=== PATIENT | female | born 1935 | race Caucasian/White ===

== ENCOUNTER 2018-05-02 21:25 | Inpatient (IN) ==
--- NOTE | 2018-05-02 22:02 | Emergency Department Note ---
Disposition Clinical Impression: Confusion, Vomiting Disposition: Still a Patient General Adult HPI - General Stated complaint: Vomiting, General weakness Time Seen by Provider: 05/02/18 21:36 Source: patient, family Mode of arrival: EMS Limitations: no limitations Nursing Notes Reviewed: Yes Vital Signs Reviewed: Yes - History of Present Illness HPI Narrative: Patient is an 83-year-old female with past medical history including hypertension, myocardial infarction, COPD, hyperlipidemia, who presents with a chief complaint of vomiting and generalized weakness. Patient came from home via EMS and accompanied by family. Per family, the patient has had 2 falls in the past week. Last fall was 4 days ago. At that time she hit the right side of her chest and breast and complains of rib pain. She denies hitting her head and did not want to be seen by the doctor. She has been recently treated for pneumonia on oral antibiotics. She has one more pill left. Family is unsure of what the antibiotic is called. They state this morning the patient woke up and had a decreased appetite. She is feeling generally weak. She has had multiple episodes of nausea and vomiting that is nonbloody, nonbilious. They deny fevers at home. Around 1800 this evening, the patient woke up from a nap and was confused. Family states that she was unable to say the name of the children. Patient continued to vomit and continued to be confused so the family called EMS who brought the patient to the ED for further evaluation. - Related Data Previous Rx's Medication Instructions Recorded HYDROcodone/Acet 5/325 mg [[place] 1 tab PO Q6H PRN 3 Days #12 tab 12/16/17 5-325 mg] Allergies Allergy/AdvReac Type Severity Reaction Status Date / Time Penicillins Allergy Anaphylaxis Verified 05/02/18 22:29 All systems ED: reviewed and negative except as stated. Review of Systems: As Per HPI Constitutional: Denies: fever, chills Eyes: Denies: eye pain, vision change ENT ED: Denies: ear pain, throat pain Cardiovascular: Denies: chest pain, palpitations Respiratory: Reports: cough. Denies: dyspnea, wheezes Gastrointestinal: Reports: nausea, vomiting. Denies: abdominal pain, diarrhea Genitourinary: Denies: dysuria, frequency Integumentary: Denies: rash, abrasion Neurological: Reports: weakness, confusion. Denies: headache Hematological/Lymphatic: Denies: easy bleeding, easy bruising Past Medical History - Past Medical History Attestation: Yes The following information was validated with the patient. Source: obtained from family, nursing notes reviewed Medical history: Reports: COPD, hyperlipidemia, hypertension, myocardial infarction Surgical history: Reports: cholecystectomy, hysterectomy Psychiatric history: Reports: no psych history ROD BUSTER history: Reports: no ROD BUSTER history - Social History Smoking Status: Never smoker Smokeless Tobacco Status: No Alcohol use: Reports: none Drug use: Reports: none Physical Exam - General Limitations: no limitations General appearance: alert, other (Actively vomiting) - Head Head exam: atraumatic, normocephalic - Eye Eye exam: Present: normal appearance, PERRL, EOMI - ENT ENT exam: normal exam, normal oropharynx, mucous membranes dry - Neck Neck exam: Present: normal inspection, full ROM, trachea midline - Chest Chest inspection: Present: normal inspection, symmetric chest wall rise, other (Mild right rib tenderness) - Respiratory Respiratory exam: Present: other (Diminished breath sounds bilateral bases. No wheezing or crackles) - Cardiovascular Cardiovascular exam: Present: regular rate, normal rhythm, normal heart sounds - Abdominal Exam Abdominal exam: Present: other (Mild generalized tenderness. Diffuse distention). Absent: guarding, rebound, rigidity - Extremities Exam Extremities exam: Present: full ROM, pedal edema (Bilateral) - Neurological Exam Neurological exam: Present: alert - Expanded Neurological Exam Patient oriented to: Present: person, place Speech: Present: fluid speech Cranial nerves: EOM function (II, III, IV, ): Normal, facial sensation (V): Normal, facial palsy (VII): Normal, spinal accessory function (XI): Normal, tongue deviation (XII): Normal Motor strength - LUE: 4/5 Motor strength - RUE: 4/5 Motor strength - LLE: 4/5 Motor strength - RLE: 4/5 Upper motor neuron exam: tucker neglect: Absent bilaterally, pronator drift: Absent bilaterally Sensory exam upper extremity: light touch: Normal Sensory exam lower extremity: light touch: Normal - Psychiatric Psychiatric exam: Present: normal affect, normal mood - Skin Skin exam: Present: warm, dry, normal color Course Vital Signs Pulse Rate 85 05/02/18 21:33 Respiratory Rate 18 05/02/18 21:33 Blood Pressure 149/113 05/02/18 21:33 O2 Sat by Pulse Oximetry 97 05/02/18 21:33 Temperature 98.4 F 05/02/18 22:52 Pulse Rate 85 05/02/18 22:52 Respiratory Rate 18 05/02/18 22:52 Blood Pressure 149/113 05/02/18 22:52 O2 Sat by Pulse Oximetry 97 05/02/18 22:52 Oxygen Delivery Oxygen Delivery Nasal Cannula Medical Decision Making - MDM Narrative Medical decision making narrative: The patient appears weak and is mildly confused. She is oriented to self and place. She is unable to state why she is in the hospital. She does follow commands. She is also actively vomiting. We will check for sources of infection. Check CBC, electrolytes, urinalysis. We will also check chest x-ray given the patient's recent fall. We will also check CT head secondary to the patient's recent fall and confusion. Secondary to vomiting and generalized weakness we will also get a troponin and EKG. Patient's abdomen is also distended on examination she is actively vomiting so we will obtain CT of her abdomen to rule out an obstruction. She has had multiple abdominal surgeries in the past. 2300 Imaging results reviewed. Patient's chest x-ray does not show acute fracture or pneumonia. Her CT head does not show acute intracranial abnormality. Her CT abdomen does show air-fluid levels suggestive of diarrheal illness. Her colon is nondistended. Lab work is still pending at this time. The patient will likely require admission. Patient was signed out tonight team. SBAR signout. Pending lab work and further management based on lab results. - Lab Data Result diagrams: 05/02/18 22:50 - EKG Data EKG #1 EKG attestation: Yes I reviewed and interpreted this EKG. EKG results narrative: EKG from today at 2147 shows sinus rhythm with heart rate 71. NC interval 156. QT 482. QTC 524. There is multiple premature complexes noted. There is inverted T waves in V1 which is improved EKG on 03/19/2017. There is also inverted T waves in V2 and V3 which appear to be flat and the prior EKG. Otherwise no acute changes. No ST elevation or depression. Attestation Statement - Attestation Attestation: Resident Attestation: I examined this patient and my medical decision making was reviewed with the Resident Physician. I agree with the documented findings, disposition and treatment plan as described except to the extent set forth below. We independently had [id number] contact with the patient. Patient with a history of COPD, coronary artery disease, diet-controlled diabetes present for evaluation of confusion as well as multiple episodes of vomiting. Patient has had 2 falls in the last week most recent one occurring 4 days ago. Patient has recently been treated with antibiotics and has one day left. The patient had weakness earlier in the day that was nonspecific. It 2 PM she had confusion in knowing some of the people around her. The patient has since then had multiple episodes of vomiting. On my exam patient is had multiple episodes of vomiting. She has her name but not place or time. On exam she is able to hold both her arms and her legs off the bed without them falling to the bed. There is no obvious facial droop or other neurologic deficit. Workup initiated for both abdominal distention given her history of previous cholecystectomy, appendectomy, hysterectomy. Chest x-ray from the prior pneumonia and head CT for the fall. Blood work and urinalysis is otherwise been ordered and is pending. Abdomen soft nontender to palpation, associated distention without guarding or rebound. Lungs clear to auscultation bilaterally, regular rate and rhythm. Neuro symptoms as listed in history of present illness -No specific deficits. Patient signed out to Dr. Powell.
[2018-05-02 23:08] LABS: Basophils # 0.1 K/mcL (0.0-0.2); Basophils % 0.3 %; Hematocrit 34.7 % (35.3-44.9); Hemoglobin 12.5 g/dL (11.5-15.4); Immature Granulocytes % 1.9 % (0-4); Lymphocytes # 1.6 K/mcL (0.6-4.6); Lymphocytes % 9.1 %; Mean Corpuscular Hemoglobin 30.9 pg (28.0-33.3); Mean Corpuscular Volume 85.9 fL (83.0-100.0); Mean Platelet Volume 8.8 fL (9.4-12.4); Monocytes # 1.3 K/mcL (0.0-1.3); Monocytes % 7.8 %; Platelet Count 238 K/mcL (140-400); Red Blood Count 4.04 M/mcL (3.82-4.97); Red Cell Distribution Width 14.4 % (11.5-14.5); Segmented Neutrophils % 80.9 %
[2018-05-02 23:31] LABS: Alanine Aminotransferase 5 Units/L (7-52); Albumin 3.4 g/dL (3.5-5.7); Albumin/Globulin Ratio 1.3 (1.1-2.2); Alkaline Phosphatase 57 Units/L (34-104); Aspartate Amino Transferase 14 Units/L (13-39); BUN/Creatinine Ratio 12 (6-26); Bilirubin,Total 1.3 mg/dL (0.3-1.0); Blood Urea Nitrogen 8 mg/dL (8-23); Calcium 8.6 mg/dL (8.6-10.3); Carbon Dioxide 28 mEq/L (23-29); Chloride 76 mEq/L (98-107); Globulin 2.7 g/dL (2.4-3.5); Glucose 187 mg/dL (70-105); Lipase 8 Units/L (11-82); Osmolality,Calculated 243 (280-300); Potassium 2.6 mEq/L (3.5-5.1); Sodium 115 mEq/L (136-145); Total Protein 6.1 g/dL (6.4-8.9); eGFR For Non-African Americans > 60 (> 60)
[2018-05-02] MEDS ORDERED: 0.9 % Sodium Chloride 1,000 ML IVC ONE (23:47)
[2018-05-03] MEDS ORDERED: 0.9 % Sodium Chloride 500 ML IVC ONE ×2 (00:20→07:30)
--- NOTE | 2018-05-03 00:33 | Emergency Department Note ---
Disposition Clinical Impression: Confusion, Hyponatremia, Hypokalemia, Hypomagnesemia Vomiting Qualifiers: Vomiting type: unspecified Vomiting Intractability: unspecified Nausea presence: with nausea Qualified Code(s): R11.2 - Nausea with vomiting, unspecified Disposition: Admitted As Inpatient Condition: Critical Time of Disposition: 00:47 General Adult HPI - General Chief complaint: ED Nausea/Vomiting/Diarrhea Stated complaint: Vomiting, General weakness Time Seen by Provider: 05/02/18 21:36 Source: patient, family Mode of arrival: EMS Limitations: no limitations - History of Present Illness HPI Narrative: This patient was signed out to me by Dr. Le and Dr. Hoff. For full history and physical please refer to their note Pain Scale: 0 - Related Data Previous Rx's Medication Instructions Recorded HYDROcodone/Acet 5/325 mg [[place] 1 tab PO Q6H PRN 3 Days #12 tab 12/16/17 5-325 mg] Allergies Allergy/AdvReac Type Severity Reaction Status Date / Time Penicillins Allergy Anaphylaxis Verified 05/02/18 22:29 Constitutional: Denies: fever, chills Eyes: Denies: eye pain, vision change ENT ED: Denies: ear pain, throat pain Cardiovascular: Denies: chest pain, palpitations Respiratory: Reports: cough. Denies: dyspnea, wheezes Gastrointestinal: Reports: nausea, vomiting. Denies: abdominal pain, diarrhea Genitourinary: Denies: dysuria, frequency Integumentary: Denies: rash, abrasion Neurological: Reports: weakness, confusion. 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 Miller at 12:30. He recommended 500 mL bolus of normal saline then rechecking sodium after that if mental status improves and sodium is increasing then to continue with treatment not to raise the sodium too fast. If patient's mental status decreases or sodium goes down after the fluid bolus he then recommends changing to hypertonic saline. Time: 00:30 Vital Signs Temperature 97.8 F 05/02/18 21:33 Pulse Rate 85 05/02/18 21:33 Respiratory Rate 18 05/02/18 21:33 Blood Pressure 149/113 05/02/18 21:33 O2 Sat by Pulse Oximetry 97 05/02/18 21:33 Temperature 98.4 F 05/02/18 22:52 Pulse Rate 67 05/03/18 00:58 Respiratory Rate 18 05/03/18 00:58 Blood Pressure 149/113 05/02/18 22:52 O2 Sat by Pulse Oximetry 100 05/03/18 00:58 Oxygen Delivery Oxygen Delivery Nasal Cannula Medical Decision Making - MDM Narrative Medical decision making narrative: This patient was signed out to me pending laboratory values. CTs and chest x- rays came back with no acute abnormalities. Patient was shown to be hyponatremic at 1:15 as well as hypokalemic at 2.1 as well as hypomagnesemia at 1.0. Potassium and magnesium were replaced. Due to patient's acute mental changes after speaking with family they say yesterday she is normally able to have a conversationwho she has where she is at the day of the week although today she only knows her name otherwise is confused. They say she is not acting normal. Due to this acute change I was unsure on whether or not patient needed be started on hypertonic saline. I spoke with the hospitalist Dr. El who recommended speaking with nephrology. I spoke with the phone engineer Dr. Miller he said that he would recommend first giving a 500 mL bolus of normal saline then rechecking a sodium and if trending up or mental status improving then to continue that being sure not to raise the sodium too fast to cause CPM. If patient's mental status worsens or she has a lower sodium then he does recommend getting hypertonic saline. This is going to be done in the emergency department and patient will be transferred to the ICU for further evaluation. Patient is stable at this time. Chest X-Ray 05/02/18 21:50 IMPRESSION: 1. Elevation of the left hemidiaphragm with volume loss in the left lung base, slightly increased. 2. Otherwise no acute cardiopulmonary disease. D/ / 05/02/2018 22:35:25 Isaac Plunkett MD / oneal Interpreting Provider: Isaac Plunkett MD Abdomen/Pelvis CT 05/02/18 21:51 IMPRESSION: Air-fluid levels within the nondistended colon consistent with diarrheal disease. No other acute finding in the abdomen or pelvis. Stable 3.1 cm low-attenuation mass in the right adrenal gland consistent with a benign adrenal adenoma. The gallbladder, appendix and uterus are surgically absent. Small fat containing umbilical and left inguinal hernias. D/ / Luis Alberto Shannon MD / Luis Alberto Shannon MD Interpreting Provider: Luis Alberto Shannon MD Head CT 05/02/18 21:51 IMPRESSION: No acute intracranial abnormality. D/ / Luis Alberto Shannon MD / Luis Alberto Shannon MD Interpreting Provider: Luis Alberto Shannon MD - Medical Records Medical records reviewed: Yes I reviewed the patient's medical records. - Lab Data Lab results reviewed: Yes I reviewed the patient's lab results. Result diagrams: 05/02/18 22:50 05/03/18 01:08 Lab Results 05/02/18 05/02/18 05/02/18 Range/Units 22:50 22:50 22:50 WBC 17.3 H (4.3-11.1) K/mcL RBC 4.04 (3.82-4.97) M/mcL Hgb 12.5 (11.5-15.4) g/dL Hct 34.7 L (35.3-44.9) % MCV 85.9 (83.0-100.0) fL MCH 30.9 (28.0-33.3) pg MCHC 36.0 H (31.6-35.5) g/dL RDW 14.4 (11.5-14.5) % Plt Count 238 (140-400) K/mcL MPV 8.8 L (9.4-12.4) fL Immature Gran % 1.9 (0-4) % Seg Neutrophils % 80.9 % Lymphocytes % 9.1 % Monocytes % 7.8 % Eosinophils % 0.0 % Basophils % 0.3 % Neutrophils # 14.0 H (1.6-8.9) K/mcL Lymphocytes # 1.6 (0.6-4.6) K/mcL Monocytes # 1.3 (0.0-1.3) K/mcL Eosinophils # 0.0 (0.0-0.6) K/mcL Basophils # 0.1 (0.0-0.2) K/mcL Sodium 115 L* (136-145) mEq/L Potassium 2.6 L (3.5-5.1) mEq/L Chloride 76 L (98-107) mEq/L Carbon Dioxide 28 (23-29) mEq/L BUN 8 (8-23) mg/dL Creatinine 0.69 (0.60-1.20) mg/dL Est GFR ( Amer) > 60 (> 60) Est GFR (Non-Af Amer) > 60 (> 60) BUN/Creatinine Ratio 12 (6-26) Glucose 187 H (70-105) mg/dL Calculated Osmolality 243 L (280-300) Calcium 8.6 (8.6-10.3) mg/dL Magnesium 1.0 L (1.6-2.6) mg/dL Total Bilirubin 1.3 H (0.3-1.0) mg/dL AST 14 (13-39) Units/L ALT 5 L (7-52) Units/L Alkaline Phosphatase 57 (34-104) Units/L Troponin I 0.04 H* (< 0.04) ng/mL Serum Total Protein 6.1 L (6.4-8.9) g/dL Albumin 3.4 L (3.5-5.7) g/dL Globulin 2.7 (2.4-3.5) g/dL Albumin/Globulin Ratio 1.3 (1.1-2.2) Lipase 8 L (11-82) Units/L TSH 1.856 (0.340-5.600) mcIU/mL 05/03/18 Range/Units 01:08 WBC (4.3-11.1) K/mcL RBC (3.82-4.97) M/mcL Hgb (11.5-15.4) g/dL Hct (35.3-44.9) % MCV (83.0-100.0) fL MCH (28.0-33.3) pg MCHC (31.6-35.5) g/dL RDW (11.5-14.5) % Plt Count (140-400) K/mcL MPV (9.4-12.4) fL Immature Gran % (0-4) % Seg Neutrophils % % Lymphocytes % % Monocytes % % Eosinophils % % Basophils % % Neutrophils # (1.6-8.9) K/mcL Lymphocytes # (0.6-4.6) K/mcL Monocytes # (0.0-1.3) K/mcL Eosinophils # (0.0-0.6) K/mcL Basophils # (0.0-0.2) K/mcL Sodium 115 L* (136-145) mEq/L Potassium 2.5 L* (3.5-5.1) mEq/L Chloride 77 L (98-107) mEq/L Carbon Dioxide 29 (23-29) mEq/L BUN 7 L (8-23) mg/dL Creatinine 0.69 (0.60-1.20) mg/dL Est GFR ( Amer) > 60 (> 60) Est GFR (Non-Af Amer) > 60 (> 60) BUN/Creatinine Ratio 10 (6-26) Glucose 154 H (70-105) mg/dL Calculated Osmolality 241 L (280-300) Calcium 8.5 L (8.6-10.3) mg/dL Magnesium (1.6-2.6) mg/dL Total Bilirubin (0.3-1.0) mg/dL AST (13-39) Units/L ALT (7-52) Units/L Alkaline Phosphatase (34-104) Units/L Troponin I (< 0.04) ng/mL Serum Total Protein (6.4-8.9) g/dL Albumin (3.5-5.7) g/dL Globulin (2.4-3.5) g/dL Albumin/Globulin Ratio (1.1-2.2) Lipase (11-82) Units/L TSH (0.340-5.600) mcIU/mL - Radiology Data Radiology results reviewed: Yes I reviewed the patient's radiology results.
[2018-05-03 00:43] LABS: Thyroid Stimulating Hormone 1.856 mcIU/mL (0.340-5.600)
[2018-05-03 01:49] LABS: BUN/Creatinine Ratio 10 (6-26); Blood Urea Nitrogen 7 mg/dL (8-23); Calcium 8.5 mg/dL (8.6-10.3); Carbon Dioxide 29 mEq/L (23-29); Chloride 77 mEq/L (98-107); Glucose 154 mg/dL (70-105); Osmolality,Calculated 241 (280-300); Potassium 2.5 mEq/L (3.5-5.1); Sodium 115 mEq/L (136-145); eGFR For Non-African Americans > 60 (> 60)
[2018-05-03] MEDS ORDERED: Naloxone 0.4 MG/ML INJ IVP PRN (02:03)
[2018-05-03] MEDS ORDERED: *HR* HYDROcodone/Acet 5/325 mg TABLET PO PRN (02:03)
[2018-05-03] MEDS ORDERED: Ondansetron 4 MG/2 ML VIAL IVP PRN (02:08)
--- NOTE | 2018-05-03 02:08 | Internal Med History&Physical ---
<Winter Escobar - Last Filed: 05/03/18 02:32> Date of Encounter: 05/03/18 Time of Encounter: 02:08 Internal Medicine - H&P: HPI Admitted From: Emergency Dept History of present illness: Ms. Simon is a 83 year old female with significant past medical history of hypertension, coronary artery disease, COPD not on any oxygen at home admitted for hyponatremia, hypokalemia and hypomagnesemia. Patient was brought to the emergency department today due to confusion, nausea and vomiting. According to family members at bedside she had not been feeling well today. She was her normal self yesterday. Daughter at bedside takes care of her in her home and s tates approximately 4 days ago she had a fall landing on the right side of her chest. No swelling, bruising her pain was there after the fall so she was not brought into the emergency department for evaluation. Last evening patient had 2 episodes of nonbloody diarrhea. Daughter states she always has loose stools. Today when the patient woke up she was very weak and did not want to eat. She laid down to take a nap, woke up and was extremely confused. Did not know where she was and did not know any of her children's name. Daughter at bedside states that patient thought she was her mother. When patient arrived to the emergency department laboratory analysis CT of the head, abdomen and pelvis were completed. Labs showed a sodium level of 115, magnesium level of 1 and a potassium level of 2.6. Patient also had leukocytosis at [address] of the abdomen and pelvis showed air-fluid levels consistent with diarrhea but no bowel obstruction. Patient did have multiple episodes of nonbloody nonbilious vomiting in the emergency department but this is now resolved. When I examine the patient she was unable to provide me with her name, where she was or what year it was. This was a change from the patient's initial evaluation. Due to patient's hyponatremia nephrology was consulted. They recommended a 500 mL bolus and repeat BMP. Patient's sodium remained 115 a nd her mental status declined. Due to declining mental status and stable hyponatremia decision to add 3% was completed with nephrology's consultation. I spoke at length with the family about plan of treatment and they agree. Daughters aware of patient's critical status. Past Med Surg Social Fam HX - Past Medical History Source: old records reviewed Medical history: COPD, hyperlipidemia, hypertension, myocardial infarction Psychiatric history: no psych history - Past Surgical History Surgical History: cholecystectomy, hysterectomy - Social History Smoking Status: Never smoker Smokeless Tobacco Status: No Alcohol use: none Drug use: none Internal Medicine - H&P: Meds HYDROcodone/Acet 5/325 mg [[place] 5-325 mg] 1 tab PO Q6H PRN 3 Days #12 tab 12/16/17 [Rx] Allergy/AdvReac Type Severity Reaction Status Date / Time Penicillins Allergy Anaphylaxis Verified 05/02/18 22:29 ROS unobtainable: due to mental status All Systems PM: A 10-system review of systems was performed and is negative for pertinent findings except as documented above in the HPI. - Constitutional Vitals: Temp Pulse Resp BP Pulse Ox 98.4 F 67 18 149/113 100 05/02/18 22:52 05/03/18 00:58 05/03/18 00:58 05/02/18 22:52 05/03/18 00:58 General appearance: Present: A&O X 0 Exam: Patient awakes to painful stimuli. Unable to provide any history of present illness. Nontoxic appearing. Hemodynamically stable. - Head Head exam: Present: atraumatic, normal inspection, normocephalic - Eye Eye exam: Present: PERRL. Absent: scleral icterus - ENT ENT exam: Present: mucous membranes dry - Respiratory Respiratory exam: Present: CTAB. Absent: rales, respiratory distress, stridor, wheezes - Cardiovascular Cardiovascular exam: Present: RRR. Absent: bradycardia, irregular rhythm, tachycardia - GI/Abdominal GI/Abdominal exam: Present: soft. Absent: distended, firm, rebound, rigid, tenderness - Extremities Exam Extremities exam: Present: warm - Skin Skin exam: Present: warm. Absent: petechiae, rash Internal Med - H&P Results - Labs CBC & Chem 7: 05/02/18 22:50 05/03/18 01:08 Labs: Short CBC 05/02/18 Range/Units 22:50 WBC 17.3 H (4.3-11.1) K/mcL Hgb 12.5 (11.5-15.4) g/dL Hct 34.7 L (35.3-44.9) % Plt Count 238 (140-400) K/mcL Neutrophils # 14.0 H (1.6-8.9) K/mcL BMP 05/02/18 05/03/18 22:50 01:08 Sodium 115 L* 115 L* Potassium 2.6 L 2.5 L* Chloride 76 L 77 L Carbon Dioxide 28 29 BUN 8 7 L Creatinine 0.69 0.69 Glucose 187 H 154 H Calcium 8.6 8.5 L Cardiac Enzymes 05/02/18 Range/Units 22:50 Troponin I 0.04 H* (< 0.04) ng/mL Liver Function 05/02/18 Range/Units 22:50 Total Bilirubin 1.3 H (0.3-1.0) mg/dL AST 14 (13-39) Units/L ALT 5 L (7-52) Units/L Alkaline Phosphatase 57 (34-104) Units/L Albumin 3.4 L (3.5-5.7) g/dL - Impressions ITS Impressions Chest X-Ray 05/02/18 21:50 IMPRESSION: 1. Elevation of the left hemidiaphragm with volume loss in the left lung base, slightly increased. 2. Otherwise no acute cardiopulmonary disease. D/ / 05/02/2018 22:35:25 Isaac Plunkett MD / [facility] Interpreting Provider: Isaac Plunkett MD Abdomen/Pelvis CT 05/02/18 21:51 IMPRESSION: Air-fluid levels within the nondistended colon consistent with diarrheal disease. No other acute finding in the abdomen or pelvis. Stable 3.1 cm low-attenuation mass in the right adrenal gland consistent with a benign adrenal adenoma. The gallbladder, appendix and uterus are surgically absent. Small fat containing umbilical and left inguinal hernias. D/ / Luis Alberto Shannon MD / Luis Alberto Shannon MD Interpreting Provider: Luis Alberto Shannon MD Head CT 05/02/18 21:51 IMPRESSION: No acute intracranial abnormality. D/ / Luis Alberto Shannon MD / Luis Alberto Shannon MD Interpreting Provider: Luis Alberto Shannon MD - Assessment and plan (1) Hyponatremia Current Visit: Yes Status: Acute Assessment and plan: Patient's sodium 115. Fluid bolus given and remained unchanged. Patient's mental status worsening. Dr. Miller from nephrology was consult. He recommends starting 3% at 25 mL per hour. We will repeat sodium levels every 2 hours with frequent neurological checks. (2) Confusion Current Visit: Yes Status: Acute Assessment and plan: Patient's confusion most likely from hyponatremia. We will continue to perform frequent neurological checks. (3) Hypokalemia Current Visit: Yes Status: Acute Assessment and plan: Patient's potassium 2.6. We will be repleted with 40 mEq IV. (4) Hypomagnesemia Current Visit: Yes Status: Acute Assessment and plan: Patient hypomagnesemic at 1. Patient will be repleted with 2 g in the emergency department and repeat mag will be completed at 6am (5) Vomiting Current Visit: Yes Status: Acute Assessment and plan: Patient had multiple episodes of nonbloody nonbilious vomiting in the emergency department. Now resolved. We will order Zofran as needed. Qualifiers: Vomiting type: unspecified Vomiting Intractability: unspecified Nausea presence: with nausea Qualified Code(s): R11.2 - Nausea with vomiting, unspecified (6) DVT prophylaxis Current Visit: Yes Status: Acute Assessment and plan: subcutaneous heparin - Time Spent With Patient Total time spent is greater than 50% in coordination of care (as documented) at patient's floor/unit and/or counseling patient: <Nicolas Goodelda Dominguez - Last Filed: 05/03/18 08:50> Date of Encounter: 05/03/18 Internal Medicine - H&P: HPI History of present illness: Ms. Simon is a 83 year old female All Systems PM: A 10-system review of systems was performed and is negative for pertinent findings except as documented above in the HPI. - Constitutional Vitals: Temp Pulse Resp BP Pulse Ox 98.0 F 67 17 93/53 99 05/03/18 07:00 05/03/18 08:00 05/03/18 08:00 05/03/18 08:00 05/03/18 08:00 Internal Med - H&P Results - Labs CBC & Chem 7: 05/03/18 06:10 05/03/18 06:10 Labs: Short CBC 05/02/18 05/03/18 Range/Units 22:50 06:10 WBC 17.3 H 14.3 H (4.3-11.1) K/mcL Hgb 12.5 10.7 L D (11.5-15.4) g/dL Hct 34.7 L 30.0 L (35.3-44.9) % Plt Count 238 202 (140-400) K/mcL Neutrophils # 14.0 H 10.7 H (1.6-8.9) K/mcL BMP 05/02/18 05/03/18 05/03/18 22:50 01:08 03:45 Sodium 115 L* 115 L* 117 L* Potassium 2.6 L 2.5 L* Chloride 76 L 77 L Carbon Dioxide 28 29 BUN 8 7 L Creatinine 0.69 0.69 Glucose 187 H 154 H Calcium 8.6 8.5 L 05/03/18 06:10 Sodium 118 L* Potassium 3.1 L Chloride 81 L Carbon Dioxide 30 H BUN 6 L Creatinine 0.62 Glucose 127 H Calcium 8.2 L Cardiac Enzymes 05/02/18 05/03/18 Range/Units 22:50 03:45 Troponin I 0.04 H* 0.04 H* (< 0.04) ng/mL Liver Function 05/02/18 Range/Units 22:50 Total Bilirubin 1.3 H (0.3-1.0) mg/dL AST 14 (13-39) Units/L ALT 5 L (7-52) Units/L Alkaline Phosphatase 57 (34-104) Units/L Albumin 3.4 L (3.5-5.7) g/dL Urine 05/03/18 Range/Units 02:11 Urine Color Dark Yellow (Yellow) Urine Clarity Cloudy A (Clear) Urine pH 6.0 (5.0-8.0) pH Units Ur Specific Atkins 1.016 (1.010-1.025) Urine Protein Negative (Neg-Trace) mg/dL Urine Glucose (UA) Normal (Normal) mg/dL - Impressions ITS Impressions Chest X-Ray 05/02/18 21:50 IMPRESSION: 1. Elevation of the left hemidiaphragm with volume loss in the left lung base, slightly increased. 2. Otherwise no acute cardiopulmonary disease. D/ / 05/02/2018 22:35:25 Isaac Plunkett MD / [facility] Interpreting Provider: Isaac Plunkett MD Abdomen/Pelvis CT 05/02/18 21:51 IMPRESSION: Air-fluid levels within the nondistended colon consistent with diarrheal disease. No other acute finding in the abdomen or pelvis. Stable 3.1 cm low-attenuation mass in the right adrenal gland consistent with a benign adrenal adenoma. The gallbladder, appendix and uterus are surgically absent. Small fat containing umbilical and left inguinal hernias. D/ / Luis Alberto Shannon MD / Luis Alberto Shannon MD Interpreting Provider: Luis Alberto Shannon MD Head CT 05/02/18 21:51 IMPRESSION: No acute intracranial abnormality. D/ / Luis Alberto Shannon MD / Luis Alberto Shannon MD Interpreting Provider: Luis Alberto Shannon MD Chest X-Ray 05/03/18 03:30 IMPRESSION: Interval placement of right-sided jugular venous catheter with its tip terminating overlying the expected location of the right atrium. No convincing evidence for pneumothorax. Persistent elevation of the left hemidiaphragm. D/ / Isac Fernandes MD / Isac Fernandes MD Interpreting Provider: Isac Fernandes MD - Time Spent With Patient Total time spent is greater than 50% in coordination of care (as documented) at patient's floor/unit and/or counseling patient: - Attending Attestation I performed a history and physical examination of the patient and discussed her management with the resident. I reviewed the resident's note and agree with her plan of care. In short patient is a 83-year-old female with a past medical history as noted above who presents with altered mental status. Found to be hyponatremic with a sodium of 115. Case was discussed with Dr. Miller with nephrology. Correction was initially attempted with a 500 mL bolus of normal saline. Patient did not respond and subsequently had a central line placed for administration of 3% normal saline. Sodium gradually improved. Nephrology to follow patient in the morning.
[2018-05-03 02:20] LABS: Bilirubin,Urine Negative (Negative); Blood,Urine Negative (Negative); Clarity,Urine Cloudy (Clear); Color,Urine Dark Yellow (Yellow); Glucose,Urine (UA) Normal (Normal); Ketones,Urine Negative (Negative); Leukocyte Esterase,Urine Small (Negative); Nitrite,Urine Negative (Negative); Protein,Urine Negative (Neg-Trace); Specific Gravity,Urine 1.016 (1.010-1.025); Urobilinogen,Urine Normal (Normal)
--- NOTE | 2018-05-03 02:22 | Emergency Department Note ---
Disposition Clinical Impression: Confusion, Hyponatremia, Hypokalemia, Hypomagnesemia Vomiting Qualifiers: Vomiting type: unspecified Vomiting Intractability: unspecified Nausea presence: with nausea Qualified Code(s): R11.2 - Nausea with vomiting, unspecified Disposition: Admitted As Inpatient Condition: Critical General Adult HPI - General Chief complaint: ED Nausea/Vomiting/Diarrhea Stated complaint: Vomiting, General weakness Time Seen by Provider: 05/02/18 21:36 Source: patient, family Mode of arrival: EMS Limitations: no limitations Nursing Notes Reviewed: Yes Vital Signs Reviewed: Yes - History of Present Illness Pain Scale: 0 - Related Data Previous Rx's Medication Instructions Recorded HYDROcodone/Acet 5/325 mg [[place] 1 tab PO Q6H PRN 3 Days #12 tab 12/16/17 5-325 mg] Allergies Allergy/AdvReac Type Severity Reaction Status Date / Time Penicillins Allergy Anaphylaxis Verified 05/02/18 22:29 Constitutional: Denies: fever, chills Eyes: Denies: eye pain, vision change ENT ED: Denies: ear pain, throat pain Cardiovascular: Denies: chest pain, palpitations Respiratory: Reports: cough. Denies: dyspnea, wheezes Gastrointestinal: Reports: nausea, vomiting. Denies: abdominal pain, diarrhea Genitourinary: Denies: dysuria, frequency Integumentary: Denies: rash, abrasion Neurological: Reports: weakness, confusion. Denies: headache Hematological/Lymphatic: Denies: easy bleeding, easy bruising Past Medical History - Past Medical History Medical history: Reports: COPD, hyperlipidemia, hypertension, myocardial infarction Surgical history: Reports: cholecystectomy, hysterectomy Psychiatric history: Reports: no psych history HUMAN SERVICES MANAGER history: Reports: no HUMAN SERVICES MANAGER history - Social History Smoking Status: Never smoker Smokeless Tobacco Status: No Alcohol use: Reports: none Drug use: Reports: none Physical Exam - General Limitations: no limitations General appearance: alert, other (Actively vomiting) Course Vital Signs Temperature 97.8 F 05/02/18 21:33 Pulse Rate 85 05/02/18 21:33 Respiratory Rate 18 05/02/18 21:33 Blood Pressure 149/113 05/02/18 21:33 O2 Sat by Pulse Oximetry 97 05/02/18 21:33 Temperature 98.4 F 05/02/18 22:52 Pulse Rate 67 05/03/18 00:58 Respiratory Rate 18 05/03/18 00:58 Blood Pressure 149/113 05/02/18 22:52 O2 Sat by Pulse Oximetry 100 05/03/18 00:58 Oxygen Delivery Oxygen Delivery Nasal Cannula Medical Decision Making - Medical Records Medical records reviewed: Yes I reviewed the patient's medical records. - Lab Data Lab results reviewed: Yes I reviewed the patient's lab results. Result diagrams: 05/02/18 22:50 05/03/18 01:08 Lab Results 05/02/18 05/02/18 05/02/18 Range/Units 22:50 22:50 22:50 WBC 17.3 H (4.3-11.1) K/mcL RBC 4.04 (3.82-4.97) M/mcL Hgb 12.5 (11.5-15.4) g/dL Hct 34.7 L (35.3-44.9) % MCV 85.9 (83.0-100.0) fL MCH 30.9 (28.0-33.3) pg MCHC 36.0 H (31.6-35.5) g/dL RDW 14.4 (11.5-14.5) % Plt Count 238 (140-400) K/mcL MPV 8.8 L (9.4-12.4) fL Immature Gran % 1.9 (0-4) % Seg Neutrophils % 80.9 % Lymphocytes % 9.1 % Monocytes % 7.8 % Eosinophils % 0.0 % Basophils % 0.3 % Neutrophils # 14.0 H (1.6-8.9) K/mcL Lymphocytes # 1.6 (0.6-4.6) K/mcL Monocytes # 1.3 (0.0-1.3) K/mcL Eosinophils # 0.0 (0.0-0.6) K/mcL Basophils # 0.1 (0.0-0.2) K/mcL Sodium 115 L* (136-145) mEq/L Potassium 2.6 L (3.5-5.1) mEq/L Chloride 76 L (98-107) mEq/L Carbon Dioxide 28 (23-29) mEq/L BUN 8 (8-23) mg/dL Creatinine 0.69 (0.60-1.20) mg/dL Est GFR ( Amer) > 60 (> 60) Est GFR (Non-Af Amer) > 60 (> 60) BUN/Creatinine Ratio 12 (6-26) Glucose 187 H (70-105) mg/dL Calculated Osmolality 243 L (280-300) Calcium 8.6 (8.6-10.3) mg/dL Magnesium 1.0 L (1.6-2.6) mg/dL Total Bilirubin 1.3 H (0.3-1.0) mg/dL AST 14 (13-39) Units/L ALT 5 L (7-52) Units/L Alkaline Phosphatase 57 (34-104) Units/L Troponin I 0.04 H* (< 0.04) ng/mL Serum Total Protein 6.1 L (6.4-8.9) g/dL Albumin 3.4 L (3.5-5.7) g/dL Globulin 2.7 (2.4-3.5) g/dL Albumin/Globulin Ratio 1.3 (1.1-2.2) Lipase 8 L (11-82) Units/L TSH 1.856 (0.340-5.600) mcIU/mL - Radiology Data Radiology results reviewed: Yes I reviewed the patient's radiology results. Chest X-Ray 05/02/18 21:50 IMPRESSION: 1. Elevation of the left hemidiaphragm with volume loss in the left lung base, slightly increased. 2. Otherwise no acute cardiopulmonary disease. D/ / 05/02/2018 22:35:25 Isaac Plunkett MD / [email or web address] Interpreting Provider: Isaac Plunkett MD Abdomen/Pelvis CT 05/02/18 21:51 IMPRESSION: Air-fluid levels within the nondistended colon consistent with diarrheal disease. No other acute finding in the abdomen or pelvis. Stable 3.1 cm low-attenuation mass in the right adrenal gland consistent with a benign adrenal adenoma. The gallbladder, appendix and uterus are surgically absent. Small fat containing umbilical and left inguinal hernias. D/ / Luis Alberto Shannon MD / Luis Alberto Shannon MD Interpreting Provider: Luis Alberto Shannon MD Head CT 05/02/18 21:51 IMPRESSION: No acute intracranial abnormality. D/ / Luis Alberto Shannon MD / Luis Alberto Shannon MD Interpreting Provider: Luis Alberto Shannon MD Critical Care Time Critical Care Time: Yes Total Critical Care Time: 45 Attestation: Critical care performed: Time is exclusive of separately billable procedures. Time includes: direct pat ient care, patient reassessment, coordination of patient care, interpretation of data (laboratory data, radiology data, and respiratory data), review of patient's medical records, medical consultation and documentation of patient care. Procedures included in critical care time: Procedures excluded from critical care time: Attestation Statement - Attestation Attestation: I, Josue Powell MD, personally evaluated this patient and discussed their management with the resident physician. I reviewed the resident's note and agree with the documented findings, medical decision making, and plan of care. This patient was signed out at shift change from Dr. Le and Dr. Hoff. Please refer to their notes for complete details of the history and physical examination. Patient is an 83-year-old female who presented by ambulance for increasing generalized weakness throughout the day associated with nausea and vomiting. Since about 6 PM after awakening from a nap the patient has been confused which has gotten progressively worse throughout the evening. On examination patient is a well-developed well-nourished elderly female in no acute distress. She is alert and answers some questions but is obviously confused. She is oriented to person only and does not recognize some of her family members. There is no cyanosis or diaphoresis. Breath sounds are equal bilaterally. Heart regular. Abdomen soft and nontender. No gross focal neurological deficits noted. Labs reviewed and patient and found to be markedly hyponatremic with a sodium of 115. No prior history. Also potassium of 2.6 and magnesium of 1.0. Dr. Miller discussed with the displayer merchandise environmental engineering manager, Dr. Miller, and he recommended initial treatment with normal saline and recheck sodium after a 500 mL bolus. He requested ICU admission. The hospitalist, Dr. El, was consulted and accepted admission of the patient.
[2018-05-03 02:35] LABS: Hyaline Casts,Urine Few per lpf (None-Few)
[2018-05-03 02:36] LABS: Bacteria,Urine Few per hpf (None-Few); Squamous Epithelial Cell,Urine Moderate per lpf (None-Few)
--- NOTE | 2018-05-03 04:26 | Procedure Note ---
Date of procedure: 05/03/18 Pre-op diagnosis: Hyponatremia Post-op diagnosis: same Procedure: The patient was placed in Trendelenburg position. RIGHT chest region was prepped using chlorhexidine scrub and draped in sterile fashion. The medial and lateral heads of the sternocleidomastoid muscle were identified as was the carotid pulse. The Internal Jugular vein was identified using the ultrasound. Anesthesia was achieved over the vein using 1% lidocaine. Using real-time out of plane guidance, the introducer needle was inserted into the Internal Jugular vein under direct ultrasound visualization. Venous blood was withdrawn. The syringe was removed and a guidewire was advanced into the introducer needle. The guidewire was visualized in the Internal Jugular Vein by ultrasound. A small incision was made at the skin surface with a scalpel and the introducer needle was exchanged for a dilator over the guidewire. After appropriate dilation was obtained, the dilator was exchanged over the wire for central venous catheter. The wire was removed and the catheter was sutured in place. The patient tolerated the procedure without any hemodynamic compromise. At time of procedure completion, all ports aspirated and flushed properly. Post-procedure chest x-ray is pending at this time. Estimated blood loss is 5cc Anesthesia: none Was there an business services assistant present: Yes Purler: Mahogany Good Estimated blood loss (cc): 5 Specimen: None Pathology: none sent Condition: stable Disposition: ICU
[2018-05-03] MEDS: *HR* Heparin 5,000 UNIT/ML VIAL SQ SCH ×2 (05:13→18:12)
[2018-05-03 06:55] LABS: Basophils % 0.2 %; Eosinophils % 0.3 %; Hemoglobin 10.7 g/dL (11.5-15.4); Immature Granulocytes % 1.2 % (0-4); Lymphocytes # 2.1 K/mcL (0.6-4.6); Lymphocytes % 14.9 %; Mean Corpuscular HGB Conc 35.7 g/dL (31.6-35.5); Mean Corpuscular Hemoglobin 31.1 pg (28.0-33.3); Mean Corpuscular Volume 87.2 fL (83.0-100.0); Mean Platelet Volume 9.2 fL (9.4-12.4); Monocytes # 1.3 K/mcL (0.0-1.3); Monocytes % 8.7 %; Neutrophils # 10.7 K/mcL (1.6-8.9); Platelet Count 202 K/mcL (140-400); Red Blood Count 3.44 M/mcL (3.82-4.97); Red Cell Distribution Width 14.4 % (11.5-14.5); Segmented Neutrophils % 74.7 %
[2018-05-03 07:17] LABS: BUN/Creatinine Ratio 10 (6-26); Blood Urea Nitrogen 6 mg/dL (8-23); Calcium 8.2 mg/dL (8.6-10.3); Carbon Dioxide 30 mEq/L (23-29); Chloride 81 mEq/L (98-107); Glucose 127 mg/dL (70-105); Magnesium 1.6 mg/dL (1.6-2.6); Osmolality,Calculated 245 (280-300); Potassium 3.1 mEq/L (3.5-5.1); Sodium 118 mEq/L (136-145); eGFR For Non-African Americans > 60 (> 60)
--- NOTE | 2018-05-03 08:34 | Pulmonology Consult Note ---
<Fani Mcclain - Last Filed: 05/03/18 21:15> Date of Encounter: 05/03/18 Time of Encounter: 09:12 Assessment and Plan (1) Hyponatremia Current Visit: Yes Status: Acute -Initial sodium on presentation 115 -Prior to this admission records shows most recent sodium (Mar 2017) was 134 -Etiology most likely multifactorial including dehydration secondary to GI losses and poor oral intake -Initial treatment in ED attempted with 500 mL bolus normal saline, sodium remained at 115--there was concern for decreasing mental status at that time and nephrology was consulted and 3% saline at low infusion rate was recommended -On recheck, sodium corrected from 118 to 128 over 4 hours -Rapid sodium correction being treated with N3H--the received 2 L total, sodium on recheck 125 -Mental status has improved since presentation Plan -Goal serum sodium [id number] -Give 1000 mL D5W followed by recheck of sodium -Recheck BMP, magnesium, and phos Q4H (2) Confusion Current Visit: Yes Status: Acute Etiology most likely related to hyponatremia Baseline mental status is unclear, but current mental status has improved since presentation to ED CT head negative for acute intracranial abnormality; showed mild generalized atrophy with mild chronic small vessel ischemic disease of white matter Continue careful hyponatremia correction as above and continue to monitor neurologic/mental status (3) Hypokalemia Current Visit: Yes Status: Acute Suspected etiology as above for hyponatremia, reported diarrhea prior to admission likely contributing as well Initial potassium 2.6, was repleted with 40 mEq IV potassium This morning potassium improved to 3.1 We will continue to monitor and replace as needed Continue monitoring cardiac rhythm on telemetry (4) Hypomagnesemia Current Visit: Yes Status: Acute Suspected etiology as above Initial magnesium of 1, repleted with 2 g IV magnesium Magnesium improved to 1.6 on recheck Continue to monitor and replace as needed (5) DVT prophylaxis Current Visit: Yes Status: Acute Subcutaneous heparin History of Present Illness Consult date: 05/03/18 Reason for consult: other (hyponatremia) History of present illness: Ms. Simon is an 83-year-old female with past medical history HTN, CAD, [place], and COPD not on home oxygen who presented to the ED with complaints of generalized weakness and multiple episodes of emesis since the morning of her day of admission. Later that evening patient awoke from nap and was confused, reportedly unable to say the name of her children; she continued to have emesis and confusion, prompting family to call EMS. Baseline mental status unclear; uncertain of patient's accuracy as historian and no family present at time of my interview with patient On presentation she was afebrile, hemodynamically stable, and saturating 95-100% on 2 L nasal cannula. CXR showed no acute cardiopulmonary disease or focal lung infiltrate. CT abdomen pelvis showed stable 3.1 cm mass of right adrenal gland consistent with benign adrenal adenoma; air-fluid levels within nondistended colon consistent with diarrheal disease. CT head negative for acute intracranial abnormalities. Initial CBC with differential showed WBC 17.3, Hgb/Hct 12.5/34.7, with neutrophils predominant and no bands. Additional lab work on presentation notable for sodium 115, potassium 2.6, chloride 76, glucose 187, calculated osmolality 243, magnesium 1, troponin 0.04, lipase 8, TSH 1.856. Initial attempt to correct hyponatremia with 500 mL bolus normal saline was unsuccessful and patient was transferred to the ICU for further evaluation and management. Central venous catheter placed in right IJ with correct placement confirmed by chest x-ray. Nephrology consulted regarding her hyponatremia and confusion, nephrology recommended starting 3% saline at 25 mL/hr with frequent neuro checks and sodium level rechecks Q2H. Hypokalemia repleted with 40 mEq IV. Hypomagnesemia repleted with 2 g in emergency department. Past Med Surg Social Fam HX - Past Medical History Medical history: COPD, hyperlipidemia, hypertension, myocardial infarction Psychiatric history: no psych history - Past Surgical History Surgical History: cholecystectomy, hysterectomy - Social History Smoking Status: Never smoker Smokeless Tobacco Status: No Alcohol use: none Drug use: none Medications and Allergies HYDROcodone/Acet 5/325 mg [[place] 5-325 mg] 1 tab PO Q6H PRN 3 Days #12 tab 12/16/17 [Rx] Allopurinol [Zyloprim 100 MG] 100 mg PO DAILY 05/03/18 [History] Ergocalciferol (VITAMIN D2) [Vitamin D2] 50,000 unit PO QWEEK 05/03/18 [History] Furosemide [Lasix] 80 mg PO DAILY 05/03/18 [History] Isosorbide MONOnitrate (24 HR) [Imdur] 30 mg PO DAILY 05/03/18 [History] Metoprolol Succinate [Toprol Xl] 50 mg PO DAILY 12/22/18 [History] Potassium Chloride [Klor-Con 10] 10 meq PO BID 05/03/18 [History] Sulfasalazine [Azulfidine] 1,000 mg PO DAILY 05/03/18 [History] Allergy/AdvReac Type Severity Reaction Status Date / Time Penicillins Allergy Anaphylaxis Verified 05/02/18 22:29 All Systems: The remainder of the systems were reviewed and are negative Review of Systems: Baseline mental status unclear; uncertain of patient's accuracy as historian and no family present at time of my interview with patient - Constitutional Constitutional: no chills, no fever(s) - Cardiovascular Cardiovascular: syncope, no chest pain, no dyspnea, no irregular heart rhythm, no palpitations - Respiratory Respiratory: no cough, no dyspnea, no wheezing - Gastrointestinal Gastrointestinal: nausea, vomiting, no abdominal pain, no diarrhea - Musculoskeletal Musculoskeletal: other (right arm pain) - Neurological Neurological: syncope, no confusion - Endocrine Endocrine: other (increased thirst) Physical Examination Vital Signs: Vital Signs, Last 4 Hours Temp Pulse Resp BP Pulse Ox 05/03/18 08:00 67 17 93/53 99 05/03/18 07:00 98.0 F 72 17 89/50 100 05/03/18 06:00 71 14 84/48 100 05/03/18 05:00 66 14 91/51 100 Results - Laboratory Findings CBC and BMP: 05/03/18 06:10 05/03/18 17:37 Abnormal lab findings: Abnormal lab results WBC 14.3 K/mcL (4.3-11.1) H 05/03/18 06:10 RBC 3.44 M/mcL (3.82-4.97) L 05/03/18 06:10 Hgb 10.7 g/dL (11.5-15.4) L D 05/03/18 06:10 Hct 30.0 % (35.3-44.9) L 05/03/18 06:10 MCHC 35.7 g/dL (31.6-35.5) H 05/03/18 06:10 MPV 9.2 fL (9.4-12.4) L 05/03/18 06:10 Neutrophils # 10.7 K/mcL (1.6-8.9) H 05/03/18 06:10 Sodium 118 mEq/L (136-145) L* 05/03/18 06:10 Potassium 3.1 mEq/L (3.5-5.1) L 05/03/18 06:10 Chloride 81 mEq/L (98-107) L 05/03/18 06:10 Carbon Dioxide 30 mEq/L (23-29) H 05/03/18 06:10 BUN 6 mg/dL (8-23) L 05/03/18 06:10 Glucose 127 mg/dL (70-105) H 05/03/18 06:10 POC Glucose 128 mg/dL (70-99) H 05/03/18 03:04 Calculated Osmolality 245 (280-300) L 05/03/18 06:10 Calcium 8.2 mg/dL (8.6-10.3) L 05/03/18 06:10 Total Bilirubin 1.3 mg/dL (0.3-1.0) H 05/02/18 22:50 ALT 5 Units/L (7-52) L 05/02/18 22:50 Troponin I 0.04 ng/mL (< 0.04) H* 05/03/18 03:45 Serum Total Protein 6.1 g/dL (6.4-8.9) L 05/02/18 22:50 Albumin 3.4 g/dL (3.5-5.7) L 05/02/18 22:50 Lipase 8 Units/L (11-82) L 05/02/18 22:50 Urine Clarity Cloudy (Clear) A 05/03/18 02:11 Ur Leukocyte Esterase Small (Negative) H 05/03/18 02:11 Urine Microscopic WBC 5-15 per hpf (0-3) H 05/03/18 02:11 Ur Squamous Epith Cells Moderate per lpf (None-Few) H 05/03/18 02:11 Ur Culture Indicated? YES (NO) A 05/03/18 02:11 - Clinical Findings Intake & Output: Intake & Output 05/02/18 05/03/18 05/03/18 23:59 07:59 15:59 Intake Total 404 / 404 Output Total 875 / 875 Balance -471 / -471 Weight 82.554 kg 80.4 kg Consult Discharge Plan - Plan Referrals: Marco Jaffe Jr, MD [Primary Care Provider] - <NattyjosemanuelAlis S - Last Filed: 05/03/18 22:42> Date of Encounter: 05/03/18 All Systems: The remainder of the systems were reviewed and are negative Physical Examination Vital Signs: Vital Signs, Last 4 Hours Temp Pulse Resp BP Pulse Ox 05/03/18 22:00 78 16 108/62 99 05/03/18 21:00 72 18 82/54 99 05/03/18 20:00 77 20 91/58 100 05/03/18 19:48 97.5 F L 05/03/18 19:00 77 18 90/46 96 Results - Laboratory Findings CBC and BMP: 05/03/18 06:10 05/03/18 17:37 Abnormal lab findings: Abnormal lab results WBC 14.3 K/mcL (4.3-11.1) H 05/03/18 06:10 RBC 3.44 M/mcL (3.82-4.97) L 05/03/18 06:10 Hgb 10.7 g/dL (11.5-15.4) L D 05/03/18 06:10 Hct 30.0 % (35.3-44.9) L 05/03/18 06:10 MCHC 35.7 g/dL (31.6-35.5) H 05/03/18 06:10 MPV 9.2 fL (9.4-12.4) L 05/03/18 06:10 Neutrophils # 10.7 K/mcL (1.6-8.9) H 05/03/18 06:10 Sodium 125 mEq/L (136-145) L 05/03/18 17:37 Potassium 3.3 mEq/L (3.5-5.1) L 05/03/18 17:37 Chloride 88 mEq/L (98-107) L 05/03/18 17:37 Carbon Dioxide 33 mEq/L (23-29) H 05/03/18 17:37 BUN 5 mg/dL (8-23) L 05/03/18 17:37 POC Glucose 128 mg/dL (70-99) H 05/03/18 03:04 Serum Osmolality 270 mOsm/kg (280-300) L 05/03/18 15:16 Calculated Osmolality 257 (280-300) L 05/03/18 17:37 Calcium 8.0 mg/dL (8.6-10.3) L 05/03/18 17:37 Total Bilirubin 1.3 mg/dL (0.3-1.0) H 05/02/18 22:50 ALT 5 Units/L (7-52) L 05/02/18 22:50 Troponin I 0.04 ng/mL (< 0.04) H* 05/03/18 03:45 Serum Total Protein 6.1 g/dL (6.4-8.9) L 05/02/18 22:50 Albumin 3.4 g/dL (3.5-5.7) L 05/02/18 22:50 Lipase 8 Units/L (11-82) L 05/02/18 22:50 Urine Clarity Cloudy (Clear) A 05/03/18 02:11 Ur Leukocyte Esterase Small (Negative) H 05/03/18 02:11 Urine Microscopic WBC 5-15 per hpf (0-3) H 05/03/18 02:11 Ur Squamous Epith Cells Moderate per lpf (None-Few) H 05/03/18 02:11 Ur Culture Indicated? YES (NO) A 05/03/18 02:11 Urine Osmolality 68 mOsm/kg (300-1090) L 05/03/18 13:19 - Clinical Findings Intake & Output: Intake & Output 05/03/18 05/03/18 05/03/18 07:59 15:59 23:59 Intake Total 404 / 404 304 / 304 1000 / 1000 Output Total 875 / 875 4025 / 4025 200 / 200 Balance -471 / -471 -3721 / -3721 800 / 800 Weight 80.4 kg - Attending Attestation I saw and evaluated this patient and my medical decision-making was reviewed with the Resident Physician. I agree with the documented findings, disposition and treatment plan as described except to the extent set forth below. We independently had [id number] contact with the patient I spent of Critical Care time with this patient. It involved decision making of high complexity to assess, manipulate, and support vital organ system failure and/or to prevent further life threatening deterioration of the patient's condition. The time involved in the performance of separately reportable procedures was not counted toward critical care time. Patient seen and examined at bedside Labs, radiology, chart personally reviewed. Management was reviewed during multidisciplinary critical care rounds. CERTIFIED SURGICAL TECHNICIAN: Patient presented with altered mental status CT showed no acute abnormalities the altered mental status most likely secondary to hypovolemic hyponatremia Pulm: Patient has acceptable oxygenation and ventilation. Cards: Patient had borderline blood pressure most likely secondary to hypovolemia responded well to fluids urine output picked up FEN-GI: Advance diet as tolerated . Renal: Nephrology was consulted for hypernatremia most likely hypovolemia was started on 500 mL of 0.9% saline was no much change in sodium with altered mental status patient was started on 3% normal saline symptoms is more of h ypovolemic hyponatremia she was again started on 500 abdominal sodium and chloride 0.9% his sodium is 118 at that point patient out of character to 128 since this is a rapid correction 5% dextrose was given back to goal sodium between 120-122 if is not correcting too that level spoke with nephrology recommended DDAVP. To continue close monitoring for sodium every 4 hours. ID: No active infectious disease issues Heme/Onc: Labs reviewed Endo: Glucose Monitored Integ/MSK: Skin Care per routine ICU Nursing Protocol to prevent ulcers. Lines: All lines examined without evidence of infection : Dispo: Critically ill CODE: Full Code
[2018-05-03] MEDS ORDERED: 0.9 % Sodium Chloride 250 ML ONE (08:55)
[2018-05-03 11:17] LABS: BUN/Creatinine Ratio 10 (6-26); Blood Urea Nitrogen 6 mg/dL (8-23); Calcium 8.2 mg/dL (8.6-10.3); Carbon Dioxide 32 mEq/L (23-29); Chloride 88 mEq/L (98-107); Glucose 123 mg/dL (70-105); Magnesium 2.3 mg/dL (1.6-2.6); Osmolality,Calculated 265 (280-300); Phosphorous 2.6 mg/dL (2.7-4.5); Potassium 2.7 mEq/L (3.5-5.1); Sodium 128 mEq/L (136-145); eGFR For Non-African Americans > 60 (> 60)
[2018-05-03] MEDS ORDERED: D5% in Water 1,000 ML IVC ONE (11:45)
[2018-05-03] MEDS: Potassium Chloride 40 MEQ/200 ML BAG IVPB PRN (12:03)
[2018-05-03] MEDS: Acetaminophen 325 MG TABLET PO PRN (12:41)
--- NOTE | 2018-05-03 12:56 | Nephrology Consult Note ---
Date of Encounter: 05/03/18 Time of Encounter: 12:56 Assessment and Plan (1) Hyponatremia Current Visit: Yes Status: Acute Prior to hospitalization per our records her most recent sodium was March 2017 and was 134. She presents with multifactorial (dehydration, poor solute intake, nausea, vomiting) acute hyponatremia that could possibly be symptomatic. Her baseline mental status is unknown. Overnight did have a conversation with the admitting hospitalist. After initial treatment with normal saline with no change in the patient's serum sodium of 115 they were concerned that her mental status was decreasing so the patient was started on a very low rate of 3% saline with slight increase in her sodium level to 117 and level of alertness. The 3% saline was stopped after 4 hours and she was given normal saline as the covering team felt that she was intravascularly dry which is consistent with my history and evaluation as well. At the time my evaluation it was noted that the patient was starting to produce significantly more urine and her most recent sodium had increased to 128 likely the result of auto-correction. I spoke with Dr. Bansal and the patient will be treated with D5 and if the sodium level continues to rise she will be given a dose of DDAVP to slow the rate of correction. Thank you for consult regarding [facility]. We will follow this patient closely with you. . (2) Confusion Current Visit: Yes Status: Acute Baseline is unknown., But seems more alert than what was described previously. (3) Hypokalemia Current Visit: Yes Status: Acute Replace as needed. Check magnesium and make sure that is greater than 2.0. (4) Hypomagnesemia Current Visit: Yes Status: Acute Replace as needed. (5) Vomiting Current Visit: Yes Status: Acute We will defer to primary team. At the time my evaluation she states she is not nauseous. Qualifiers: Vomiting type: unspecified Vomiting Intractability: unspecified Nausea presence: with nausea Qualified Code(s): R11.2 - Nausea with vomiting, unspecified (6) Hypertension Current Visit: Yes Status: Acute Patient with history of hypertension. Her blood pressure currently is on the low side. Titrate antihypertensive medication as needed. Qualifiers: Qualified Code(s): I10 - Essential (primary) hypertension History of Present Illness - Reason for Consult Consult date: 05/03/18 hyponatremia - Chief Complaint Hyponatremia - History of Present Illness Ms. Simon is an 83-year-old woman with a history of hypertension who presents secondary to altered mental status along with some nausea and vomiting. History was obtained from the electronic record along with discussions with the primary team this morning as well as overnight. The patient was alert, but was not oriented. She was unable to provide any additional history. She did deny having chest pain, or shortness of breath. A complete review of systems unobtainable secondary to her mental status. Past Med Surg Social Fam HX - Past Medical History Medical history: COPD, hyperlipidemia, hypertension, myocardial infarction Psychiatric history: no psych history - Past Surgical History Surgical History: cholecystectomy, hysterectomy - Social History Smoking Status: Never smoker Smokeless Tobacco Status: No Alcohol use: none Drug use: none Medications and Allergies HYDROcodone/Acet 5/325 mg [[place] 5-325 mg] 1 tab PO Q6H PRN 3 Days #12 tab 12/16/17 [Rx] Allopurinol [Zyloprim 100 MG] 100 mg PO DAILY 05/03/18 [History] Ergocalciferol (VITAMIN D2) [Vitamin D2] 50,000 unit PO QWEEK 05/03/18 [History] Furosemide [Lasix] 80 mg PO DAILY 05/03/18 [History] Isosorbide MONOnitrate (24 HR) [Imdur] 30 mg PO DAILY 05/03/18 [History] Metoprolol Succinate [Toprol Xl] 50 mg PO DAILY 05/03/18 [History] Potassium Chloride [Klor-Con 10] 10 meq PO BID 05/03/18 [History] Sulfasalazine [Azulfidine] 1,000 mg PO DAILY 05/03/18 [History] Allergy/AdvReac Type Severity Reaction Status Date / Time Penicillins Allergy Anaphylaxis Verified 05/02/18 22:29 Review of Systems ROS unobtainable: due to mental status Exam - Vital Signs Vital signs: Initial Vital Signs Temp Pulse Resp BP Pulse Ox 97.8 F 85 18 149/113 97 05/02/18 21:33 05/02/18 21:33 05/02/18 21:33 05/02/18 21:33 05/02/18 21:33 Vital Signs - Last 8 Hours Temp Pulse Resp BP Pulse Ox 05/03/18 12:00 67 18 95/54 98 05/03/18 11:00 69 18 111/53 98 05/03/18 10:00 68 18 102/58 96 05/03/18 09:00 71 17 96/49 99 05/03/18 08:00 67 17 93/53 99 05/03/18 07:00 98.0 F 72 17 89/50 100 05/03/18 06:00 71 14 84/48 100 05/03/18 05:00 66 14 91/51 100 Intake and Output 05/02/18 05/03/18 05/03/18 23:59 07:59 15:59 Intake Total 404 / 404 104 / 104 Output Total 875 / 875 2800 / 2800 Balance -471 / -471 -2696 / -2696 Intake: IV Fluids 404 / 404 104 / 104 Magnesium Sulfate 2 GM In 0.9 % 104 / 104 104 / 104 Sodium Chloride 100 ML @ 52 mls/hr IVPB Q6H PRN Rx#: [id number] Potassium Chloride 10 mEq/100mL 300 / 300 10 meq In 100 ml @ 100 mls/hr IVPB Q1H SHANEKA Rx#:[id number] Output: Catheter 875 / 875 2800 / 2800 Other: Weight 82.554 kg 80.4 kg Blood Glucose* 128 Patient Weight 05/03/18 23:59 Weight 80.4 kg - General Appearance General appearance: well-developed, well-nourished, chronically ill, frail EENT: ATNC Neck: supple Respiratory: course breath sounds Cardiology: no edema, regular rate Gastrointestinal: obese Integumentary: warm and dry Neurologic: disoriented Additional Comments: Patient is alert Musculoskeletal: no cyanosis Psychiatric: cooperative Results - Lab Results 05/03/18 06:10 05/03/18 10:29 Most recent lab results Calcium 8.2 mg/dL (8.6-10.3) L 05/03/18 10:29 Phosphorus 2.6 mg/dL (2.7-4.5) L 05/03/18 10:29 Magnesium 2.3 mg/dL (1.6-2.6) 05/03/18 10:29 Consult Discharge Plan - Plan Referrals: Marco Jaffe Jr, MD [Primary Care Provider] -
[2018-05-03] MEDS: D5% in Water 1,000 ML IVC SCH ×13 (14:42→23:04)
[2018-05-03] MEDS: Artificial Tears SOLN 15 ML BOTTLE BOTH EYES SCH ×3 (14:42→22:10)
[2018-05-03 18:13] LABS: BUN/Creatinine Ratio 8 (6-26); Blood Urea Nitrogen 5 mg/dL (8-23); Carbon Dioxide 33 mEq/L (23-29); Chloride 88 mEq/L (98-107); Glucose 97 mg/dL (70-105); Osmolality,Calculated 257 (280-300); Potassium 3.3 mEq/L (3.5-5.1); Sodium 125 mEq/L (136-145); eGFR For Non-African Americans > 60 (> 60)
[2018-05-03] MEDS ORDERED: Potassium Effervescent 25 MEQ TABLET.EFF PO ONE (18:28)
[2018-05-04 04:01] LABS: Hemoglobin 11.5 g/dL (11.5-15.4); Mean Corpuscular HGB Conc 34.8 g/dL (31.6-35.5); Mean Corpuscular Volume 88.9 fL (83.0-100.0); Mean Platelet Volume 8.9 fL (9.4-12.4); Platelet Count 214 K/mcL (140-400); Red Blood Count 3.71 M/mcL (3.82-4.97); Red Cell Distribution Width 14.8 % (11.5-14.5)
[2018-05-04] MEDS: D5% in Water 1,000 ML IVC SCH ×2 (04:02→05:10)
[2018-05-04 04:11] LABS: BUN/Creatinine Ratio 7 (6-26); Blood Urea Nitrogen 4 mg/dL (8-23); Calcium 8.3 mg/dL (8.6-10.3); Carbon Dioxide 32 mEq/L (23-29); Chloride 85 mEq/L (98-107); Glucose 111 mg/dL (70-105); Osmolality,Calculated 252 (280-300); Potassium 3.4 mEq/L (3.5-5.1); Sodium 122 mEq/L (136-145); eGFR For Non-African Americans > 60 (> 60)
[2018-05-04] MEDS: Potassium Chloride 40 MEQ/200 ML BAG IVPB PRN ×2 (04:23→06:14)
[2018-05-04] MEDS: Acetaminophen 325 MG TABLET PO PRN (04:23)
[2018-05-04] MEDS: *HR* Heparin 5,000 UNIT/ML VIAL SQ SCH ×2 (05:09→17:19)
--- NOTE | 2018-05-04 08:08 | Pulmonology Progress Note ---
<Fani Mcclain - Last Filed: 05/04/18 15:39> Date of Encounter: 05/04/18 Time of Encounter: 08:08 Assessment and Plan (1) Hyponatremia Current Visit: Yes Status: Acute -Initial sodium on presentation 115 -Prior to this admission records shows most recent sodium (Mar 2017) was 134 -Etiology most likely multifactorial including dehydration secondary to GI losses and poor oral intake -Initial treatment in ED attempted with 500 mL bolus normal saline, sodium remained at 115--there was concern for decreasing mental status at that time and nephrology was consulted and 3% saline at low infusion rate was recommended -On recheck, sodium corrected from 118 to 128 over 4 hours -Rapid sodium correction was treated with D5W -Sodium corrected to 121 after 3 L of D5W and 1 mcg desmopressin given over the course of 13 hours -Mental status has improved since presentation and has remained stable Plan -Stable for transfer to telemetry floor -Continue right IJ central line 24 hours for repeated blood draws and electrolyte replacement -Goal serum sodium [id number] -Regular diet order placed Nephrology is following (2) Confusion Current Visit: Yes Status: Acute Etiology most likely related to hyponatremia Baseline mental status is unclear, but mental status improved since presentation to ED and is stable CT head negative for acute intracranial abnormality; showed mild generalized atrophy with mild chronic small vessel ischemic disease of white matter Plan as above (3) Hypokalemia Current Visit: Yes Status: Acute Improved Suspected etiology as above for hyponatremia, reported diarrhea prior to admission likely contributing as well Initial potassium 2.6, was repleted with 40 mEq IV potassium This morning potassium improved to 3.4 Plan: Monitor and replace as needed Continue monitoring cardiac rhythm on telemetry (4) Hypomagnesemia Current Visit: Yes Status: Acute Improved Suspected etiology as above Initial magnesium of 1, repleted with 2 g IV magnesium --> improved to 1.6 Magnesium today 1.8 Plan: Monitor and replace as needed (5) DVT prophylaxis Current Visit: Yes Status: Acute Subcutaneous heparin Subjective Principal diagnosis: hyponatremia Interval history: Patient seen and examined this morning at bedside. She is awake and resting in bed comfortably. Overall she feels improved from yesterday, however she reports she did not sleep very well last night and kept getting a dry mouth. Otherwise, no overnight events reported. Objective PUL Vital signs: Last Vital Signs Temp 98.0 F 05/04/18 07:44 Pulse 79 05/04/18 06:00 Resp 16 05/04/18 06:00 BP 90/53 05/04/18 06:00 Pulse Ox 99 05/04/18 06:00 General appearance: no acute distress, alert Eyes: nonicteric ENT: oropharynx moist Neck: supple, other (Right-sided IJ) Effort: normal, other (no wheezing, rhonchi) Auscultation: bilateral: clear Cardiovascular: regular rate and rhythm Gastrointestinal: normoactive bowel sounds, soft, non-tender, non-distended Integumentary: normal (clean, dry, intact) Extremities: no cyanosis, no clubbing, pink and warm, edema (BLE nonpitting) normal mental status (Alert and oriented 3, baseline mental status uncertain), non-focal exam, pupils equal and round, CN II-XII normal mood appropriate, affect normal Results - Laboratory Findings CBC and BMP: 05/04/18 03:38 05/04/18 10:25 Abnormal lab findings: Abnormal lab results WBC 12.9 K/mcL (4.3-11.1) H 05/04/18 03:38 RBC 3.71 M/mcL (3.82-4.97) L 05/04/18 03:38 Hct 33.0 % (35.3-44.9) L 05/04/18 03:38 RDW 14.8 % (11.5-14.5) H 05/04/18 03:38 MPV 8.9 fL (9.4-12.4) L 05/04/18 03:38 Neutrophils # 10.7 K/mcL (1.6-8.9) H 05/03/18 06:10 Sodium 122 mEq/L (136-145) L 05/04/18 03:38 Potassium 3.4 mEq/L (3.5-5.1) L 05/04/18 03:38 Chloride 85 mEq/L (98-107) L 05/04/18 03:38 Carbon Dioxide 32 mEq/L (23-29) H 05/04/18 03:38 BUN 4 mg/dL (8-23) L 05/04/18 03:38 Creatinine 0.59 mg/dL (0.60-1.20) L 05/04/18 03:38 Glucose 111 mg/dL (70-105) H 05/04/18 03:38 POC Glucose 128 mg/dL (70-99) H 05/03/18 03:04 Serum Osmolality 270 mOsm/kg (280-300) L 05/03/18 15:16 Calculated Osmolality 252 (280-300) L 05/04/18 03:38 Calcium 8.3 mg/dL (8.6-10.3) L 05/04/18 03:38 Total Bilirubin 1.3 mg/dL (0.3-1.0) H 05/02/18 22:50 ALT 5 Units/L (7-52) L 05/02/18 22:50 Troponin I 0.04 ng/mL (< 0.04) H* 05/03/18 03:45 Serum Total Protein 6.1 g/dL (6.4-8.9) L 05/02/18 22:50 Albumin 3.4 g/dL (3.5-5.7) L 05/02/18 22:50 Lipase 8 Units/L (11-82) L 05/02/18 22:50 Urine Clarity Cloudy (Clear) A 05/03/18 02:11 Ur Leukocyte Esterase Small (Negative) H 05/03/18 02:11 Urine Microscopic WBC 5-15 per hpf (0-3) H 05/03/18 02:11 Ur Squamous Epith Cells Moderate per lpf (None-Few) H 05/03/18 02:11 Ur Culture Indicated? YES (NO) A 05/03/18 02:11 Urine Osmolality 68 mOsm/kg (300-1090) L 05/03/18 13:19 - Microbiology Findings Microbiology Findings: Microbiology, Last 48 Hours 05/03/18 02:11 Urine Culture - Final Urine,Catheterized No significant growth. - Clinical Findings Intake & Output: Intake & Output 05/03/18 05/04/18 05/04/18 23:59 07:59 15:59 Intake Total 1999 / 1999 300 / 300 Output Total 300 / 300 150 / 150 Balance 1700 / 1700 150 / 150 Weight 82.4 kg Consult Discharge Plan - Plan Referrals: Marco Jaffe Jr, MD [Primary Care Provider] - <Alis Vee - Last Filed: 05/04/18 19:14> Date of Encounter: 05/04/18 Objective PUL Vital signs: Last Vital Signs Temp 97.5 F L 05/04/18 16:57 Pulse 90 05/04/18 16:57 Resp 14 05/04/18 16:57 BP 107/55 05/04/18 16:57 Pulse Ox 92 05/04/18 16:57 Results - Laboratory Findings CBC and BMP: 05/04/18 03:38 05/04/18 17:25 Abnormal lab findings: Abnormal lab results WBC 12.9 K/mcL (4.3-11.1) H 05/04/18 03:38 RBC 3.71 M/mcL (3.82-4.97) L 05/04/18 03:38 Hct 33.0 % (35.3-44.9) L 05/04/18 03:38 RDW 14.8 % (11.5-14.5) H 05/04/18 03:38 MPV 8.9 fL (9.4-12.4) L 05/04/18 03:38 Neutrophils # 10.7 K/mcL (1.6-8.9) H 05/03/18 06:10 Sodium 121 mEq/L (136-145) L 05/04/18 17:25 Chloride 86 mEq/L (98-107) L 05/04/18 08:12 Carbon Dioxide 33 mEq/L (23-29) H 05/04/18 08:12 BUN 5 mg/dL (8-23) L 05/04/18 08:12 Creatinine 0.58 mg/dL (0.60-1.20) L 05/04/18 08:12 POC Glucose 128 mg/dL (70-99) H 05/03/18 03:04 Serum Osmolality 270 mOsm/kg (280-300) L 05/03/18 15:16 Calculated Osmolality 251 (280-300) L 05/04/18 08:12 Calcium 8.5 mg/dL (8.6-10.3) L 05/04/18 08:12 Phosphorus 2.2 mg/dL (2.7-4.5) L 05/04/18 08:12 Total Bilirubin 1.3 mg/dL (0.3-1.0) H 05/02/18 22:50 ALT 5 Units/L (7-52) L 05/02/18 22:50 Troponin I 0.04 ng/mL (< 0.04) H* 05/03/18 03:45 Serum Total Protein 6.1 g/dL (6.4-8.9) L 05/02/18 22:50 Albumin 3.4 g/dL (3.5-5.7) L 05/02/18 22:50 Lipase 8 Units/L (11-82) L 05/02/18 22:50 Urine Clarity Cloudy (Clear) A 05/03/18 02:11 Ur Leukocyte Esterase Small (Negative) H 05/03/18 02:11 Urine Microscopic WBC 5-15 per hpf (0-3) H 05/03/18 02:11 Ur Squamous Epith Cells Moderate per lpf (None-Few) H 05/03/18 02:11 Ur Culture Indicated? YES (NO) A 05/03/18 02:11 Urine Osmolality 68 mOsm/kg (300-1090) L 05/03/18 13:19 - Microbiology Findings Microbiology Findings: Microbiology, Last 48 Hours 05/03/18 02:11 Urine Culture - Final Urine,Catheterized No significant growth. - Clinical Findings Intake & Output: Intake & Output 05/04/18 05/04/18 05/04/18 07:59 15:59 23:59 Intake Total 300 / 300 390 / 390 60 / 60 Output Total 150 / 150 Balance 150 / 150 390 / 390 60 / 60 Weight 82.4 kg - Attending Attestation - Attending Attestation I saw and evaluated this patient and my medical decision-making was reviewed with the Resident Physician. I agree with the documented findings, disposition and treatment plan as described except to the extent set forth below. We independently had [id number] contact with the patient Patient seen and examined at bedside Labs, radiology, chart personally reviewed. Management was reviewed during multidisciplinary critical care rounds. 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 Pulm: Patient has acceptable oxygenation and ventilation. Cards: Patient is hemodynamically stable FEN-GI: Advance diet as tolerated . Renal: Nephrology was consulted for hypernatremia most likely hypovolemia was started on 500 mL of 0.9% saline was no much change in sodium with altered mental status patient was started on 3% normal saline symptoms is more of hypovolemic hyponatremia she was again started on 500 abdominal sodium and chloride 0.9% his sodium is 118 at that point patient out of character to 128 since this is a rapid correction 5% dextrose was given back to goal sodium between 120-122 if is not correcting too that level spoke with nephrology recommended DDAVP. To continue close monitoring for sodium every 4 hours. Patient sodium is stabilized appreciate nephrology stabilized ID: No active infectious disease issues Heme/Onc: Labs reviewed Endo: Glucose Monitored Integ/MSK: Skin Care per routine ICU Nursing Protocol to prevent ulcers. Lines: All lines examined without evidence of infection : Dispo: Transfer to medical telemetry CODE: Full Code
[2018-05-04 08:41] LABS: BUN/Creatinine Ratio 9 (6-26); Blood Urea Nitrogen 5 mg/dL (8-23); Calcium 8.5 mg/dL (8.6-10.3); Carbon Dioxide 33 mEq/L (23-29); Chloride 86 mEq/L (98-107); Glucose 102 mg/dL (70-105); Osmolality,Calculated 251 (280-300); Phosphorous 2.2 mg/dL (2.7-4.5); Potassium 4.1 mEq/L (3.5-5.1); Sodium 122 mEq/L (136-145); eGFR For Non-African Americans > 60 (> 60)
[2018-05-04] MEDS: Artificial Tears SOLN 15 ML BOTTLE BOTH EYES SCH ×4 (09:23→22:04)
[2018-05-04] MEDS ORDERED: Potassium Phosphate 44 MEQ in 0.9 % Sodium Chloride 250 ML IVPB ONE (09:27)
--- NOTE | 2018-05-04 09:56 | Nephrology Progress Note ---
Date of Encounter: 05/04/18 Time of Encounter: 09:56 - Assessment and Plan (1) Hyponatremia Current Visit: Yes Status: Acute Prior to hospitalization per our records her most recent sodium was March 2017 and was 134. She presents with multifactorial (dehydration, poor solute intake, nausea, vomiting) acute hyponatremia that could possibly be symptomatic. Her baseline mental status is unknown. Overnight did have a conversation with the admitting hospitalist. After initial treatment with normal saline with no change in the patient's serum sodium of 115 they were concerned that her mental status was decreasing so the patient was started on a very low rate of 3% saline with slight increase in her sodium level to 117 and level of alertness. The 3% saline was stopped after 4 hours and she was given normal saline as the covering team felt that she was intravascularly dry which is consistent with my history and evaluation as well. At the time my evaluation it was noted that the patient was starting to produce significantly more urine and her most recent sodium had increased to 128 likely the result of auto-correction. I spoke with Dr. Vee and the patient will be treated with D5 and if the sodium level continues to rise she will be given a dose of DDAVP to slow the rate of correction. 05/04/2018 - Patient received DDAVP as well as D5 overnight with correction of her serum sodium level to 122. Will maintain a serum sodium in the low 120s for most of today and allow her serum sodium to slowly increase tonight. Continue serial sodium levels. Patient mental status may be at baseline. . (2) Confusion Current Visit: Yes Status: Acute Patient is likely back to her baseline. (3) Hypokalemia Current Visit: Yes Status: Acute Replace as needed. Check magnesium and make sure that is greater than 2.0. (4) Hypomagnesemia Current Visit: Yes Status: Acute Replace as needed. (5) Vomiting Current Visit: Yes Status: Acute We will defer to primary team. At the time my evaluation she states she is not complaining of nausea. Qualifiers: Vomiting type: unspecified Vomiting Intractability: unspecified Nausea presence: with nausea Qualified Code(s): R11.2 - Nausea with vomiting, unspecified (6) Hypertension Current Visit: Yes Status: Acute Patient with history of hypertension. Her blood pressure currently is on the low side. Titrate antihypertensive medication as needed. Qualifiers: Qualified Code(s): I10 - Essential (primary) hypertension Subjective Principal diagnosis: Hyponatremia. Interval history: Patient seen. She is more alert and interactive compared to yesterday. No new complaints. Objective - Vital Signs Vital signs: Vital Signs Temp Pulse Resp BP Pulse Ox 05/04/18 08:00 71 16 98/57 100 05/04/18 07:44 98.0 F 05/04/18 07:00 79 16 93/67 97 05/04/18 06:00 79 16 90/53 99 05/04/18 05:00 76 16 97/71 97 05/04/18 04:00 80 20 104/65 97 05/04/18 03:30 74 05/04/18 03:00 84 16 90/48 97 05/04/18 02:00 70 18 91/50 100 05/04/18 01:00 75 16 92/55 100 05/04/18 00:00 75 18 85/54 99 05/03/18 23:00 74 16 91/56 100 05/03/18 22:58 97.3 F L 05/03/18 22:00 78 16 108/62 99 05/03/18 21:00 72 18 82/54 99 05/03/18 20:00 77 20 91/58 100 05/03/18 19:48 97.5 F L 05/03/18 19:00 77 18 90/46 96 05/03/18 18:00 82 18 89/53 97 05/03/18 17:00 80 18 90/60 100 05/03/18 16:00 80 17 84/52 100 05/03/18 15:00 98.6 F 80 17 90/52 100 05/03/18 14:00 84 17 81/55 100 05/03/18 13:00 70 18 99/52 98 05/03/18 12:00 67 18 95/54 98 05/03/18 11:00 69 18 111/53 98 05/03/18 10:00 68 18 102/58 96 Intake and Output 05/03/18 05/04/18 05/04/18 23:59 07:59 15:59 Intake Total 1999 300 / 300 Output Total 300 / 300 150 / 150 Balance 1700 / 1700 150 / 150 Intake: IV Fluids 1999 300 / 300 Dextrose 5% 1,000 ML @ 250 mls/ 2000 / 1999 hr IVC .Q4H SHANEKA Rx#:[id number] Potassium Chloride 20 mEq/100 300 / 300 mL 40 meq In 200 ml @ 100 mls/ hr IVPB Q1H PRN Rx#:[id number] Oral 0 / 0 Output: Catheter 300 / 300 150 / 150 Other: Stool Size Small Small Stool Consistency loose liquid Stool Color Yellow Brown # Bowel Movements 1 Weight 82.4 kg Patient Weight 05/04/18 23:59 Weight 82.4 kg - General Appearance General appearance: Present: well-developed, well-nourished EENT: Present: ATNC Neck: Present: supple Cardiology: Present: regular rate Additional Comments: Alert. Psychiatric: Present: mood/affect appropriate - Lab 05/04/18 03:38 05/04/18 14:18 Most recent lab results Calcium 8.5 mg/dL (8.6-10.3) L 05/04/18 08:12 Phosphorus 2.2 mg/dL (2.7-4.5) L 05/04/18 08:12 Magnesium 1.8 mg/dL (1.6-2.6) 05/04/18 08:12 Consult Discharge Plan - Plan Referrals: Marco Jaffe Jr, MD [Primary Care Provider] -
[2018-05-04] MEDS ORDERED: Acetaminophen 325 MG TABLET PO PRN (11:21)
[2018-05-04] MEDS ORDERED: Naloxone 0.4 MG/ML INJ IVP PRN (11:21)
[2018-05-04] MEDS ORDERED: Ondansetron 4 MG/2 ML VIAL IVP PRN (11:21)
[2018-05-04] MEDS: Chloraseptic Spray 177 ML BOTTLE MM PRN (21:19)
[2018-05-04] MEDS ORDERED: 0.9 % Sodium Chloride 1,000 ML IVC SCH (22:30)
--- NOTE | 2018-05-05 01:05 | Event Note ---
Date of Encounter: 05/04/18 Time of Encounter: 20:54 Alerted by pts. nurse ALEX Ball that patient's sodium was a critical 120 and previous was 121. No IV fluids running at this time. Reviewed notes which mentioned 3% sodium @ 25 mls/hr per Dr. Miller. Spoke with Dr. Miller regarding pt. and plan to increase sodium and I appreciate the consult and recommendations as always. Recommendation to start 0.9 NS @75 mls/hr and re-check sodium level at 01:00. Pt. is currently on telemetry. Nurse instructed to monitor pt. closely and notify me immediately of any adverse changes.
[2018-05-05 01:33] LABS: Albumin 3.1 g/dL (3.5-5.7); BUN/Creatinine Ratio 9 (6-26); Blood Urea Nitrogen 5 mg/dL (8-23); Calcium 8.3 mg/dL (8.6-10.3); Carbon Dioxide 29 mEq/L (23-29); Chloride 83 mEq/L (98-107); Glucose 106 mg/dL (70-105); Osmolality,Calculated 246 (280-300); Phosphorous 2.5 mg/dL (2.7-4.5); Potassium 3.9 mEq/L (3.5-5.1); Sodium 119 mEq/L (136-145); eGFR For Non-African Americans > 60 (> 60)
[2018-05-05] MEDS ORDERED: Furosemide 20 MG/2 ML VIAL IVP ONE (01:48)
[2018-05-05 04:19] LABS: BUN/Creatinine Ratio 7 (6-26); Blood Urea Nitrogen 4 mg/dL (8-23); Calcium 8.2 mg/dL (8.6-10.3); Carbon Dioxide 31 mEq/L (23-29); Chloride 84 mEq/L (98-107); Glucose 102 mg/dL (70-105); Osmolality,Calculated 247 (280-300); Phosphorous 2.5 mg/dL (2.7-4.5); Potassium 3.7 mEq/L (3.5-5.1); Sodium 120 mEq/L (136-145); eGFR For Non-African Americans > 60 (> 60)
[2018-05-05] MEDS: *HR* Heparin 5,000 UNIT/ML VIAL SQ SCH ×2 (05:15→17:32)
--- NOTE | 2018-05-05 06:48 | Nephrology Progress Note ---
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 PNa was suppressed d/t initial rapid correction. Now is an acceptable time frame to allow for more slow, safe correction at about 6-8mEq per 24hr. Of note, in SIADH pt's will retain the free water of even 0.9% saline and so I recommend stopping the 0.9% saline. Will give a dose of Tolvaptan x1, which will induce a free water diuresis and improvement of her hyponatremia. Continue q4hr PNa checks. I reviewed the handoff communication from Dr. Miller and I also reviewed the progress notes (see below), labs, vitals, med list and imaging in this complex and high risk patient, who required a high degree of E/M and MDM. Prior to hospitalization per our records her most recent sodium was March 2017 and was 134. She presents with multifactorial (dehydration, poor solute intake, nausea, vomiting) acute hyponatremia that could possibly be symptomatic. Her baseline mental status is unknown. Overnight did have a conversation with the admitting hospitalist. After initial treatment with normal saline with no change in the patient's serum sodium of 115 they were concerned that her mental status was decreasing so the patient was started on a very low rate of 3% saline with slight increase in her sodium level to 117 and level of alertness. The 3% saline was stopped after 4 hours and she was given normal saline as the covering team felt that she was intravascularly dry which is consistent with my history and evaluation as well. At the time my evaluation it was noted that the patient was starting to produce significantly more urine and her most recent sodium had increased to 128 likely the result of auto-correction. I spoke with Dr. Vee and the patient will be treated with D5 and a dose of DDAVP to slow the rate of correction. 05/04/2018 - Patient received DDAVP as well as D5 overnight with correction of her serum sodium level to 122. Will maintain a serum sodium in the low 120s for most of today and allow her serum sodium to slowly increase tonight. Continue serial sodium levels. Patient mental status may be at baseline. . (2) Vomiting Current Visit: Yes Status: Acute Qualifiers: Vomiting type: unspecified Vomiting Intractability: unspecified Nausea presence: with nausea Qualified Code(s): R11.2 - Nausea with vomiting, unspecified (3) Hypokalemia Current Visit: Yes Status: Acute (4) Hypomagnesemia Current Visit: Yes Status: Acute (5) Hypertension Current Visit: Yes Status: Acute Qualifiers: Qualified Code(s): I10 - Essential (primary) hypertension (6) Confusion Current Visit: Yes Status: Acute Subjective Principal diagnosis: Hyponatremia. Interval history: Pt was s/e in her room with her adult granddaughter present. The pt affirmed feeling tired, with some mild dec in appetite, but she denied N/V/D. Objective - Vital Signs Vital signs: Vital Signs Temp Pulse Resp BP Pulse Ox 05/05/18 04:26 97.6 F 92 17 100/67 91 05/05/18 00:54 98.1 F 87 16 104/72 91 05/04/18 19:46 92 05/04/18 16:57 97.5 F L 90 14 107/55 92 05/04/18 12:27 100 05/04/18 10:00 86 17 101/52 100 05/04/18 09:00 92 17 92/63 97 05/04/18 08:00 71 16 98/57 100 05/04/18 07:44 98.0 F 05/04/18 07:00 79 16 93/67 97 Intake and Output 05/04/18 05/04/18 05/05/18 15:59 23:59 07:59 Intake Total 390 / 390 60 / 60 Output Total 1200 / 1200 Balance 390 / 390 60 / 60 -1200 / -1200 Intake: Oral 390 / 390 60 / 60 Output: Catheter 1200 / 1200 Other: Meal Breakfast Percent of Meal Consumed 100% Stool Size Moderate Small Stool Consistency loose loose formed Stool Characteristics Normal for Patient Stool Color Brown Brown Yellow # Voids 1 # Bowel Movements 1 1 - General Appearance General appearance: Present: well-developed, well-nourished, obese, fatigue EENT: Present: ATNC, PERRL, mucous membranes moist Neck: Present: supple Respiratory: Present: clear Cardiology: Present: edema (nonpitting large ankles mostly consistent with adiposity), regular rate, regular rhythm, normal S1, normal S2 Gastrointestinal: Present: normoactive bowel sounds, no tenderness, obese Integumentary: Present: warm and dry Neurologic: Present: no asterixis Musculoskeletal: Present: no erythema, no cyanosis Psychiatric: Present: cooperative - Lab 05/04/18 03:38 05/05/18 07:33 Most recent lab results Calcium 8.2 mg/dL (8.6-10.3) L 05/05/18 03:47 Phosphorus 2.5 mg/dL (2.7-4.5) L 05/05/18 03:47 Magnesium 1.8 mg/dL (1.6-2.6) 05/04/18 08:12 Consult Discharge Plan - Plan Referrals: Marco Jaffe Jr, MD [Primary Care Provider] -
[2018-05-05] MEDS ORDERED: Potassium Phosphate 44 MEQ in 0.9 % Sodium Chloride 250 ML IVPB ONE (07:50)
--- NOTE | 2018-05-05 08:05 | Internal Med Progress Note ---
Hospitalist Progress Note - Encounter Date of Encounter: 05/05/18 Time of Encounter: 08:00 - Exam Vitals: Temp Pulse Resp BP Pulse Ox 97.9 F 90 16 96/64 91 05/05/18 07:23 05/05/18 07:23 05/05/18 07:23 05/05/18 07:23 05/05/18 07:23 Exam: Gen - Awake, alert, oriented x 3, no acute distress HEENT - NCAT, PERRLA, EOMI, hearing grossly intact, oropharynx benign CV - RRR, normal S1 and S2, no M/R/G, no BLE edema Resp - Normal WOB, CTAB, no W/R/R GI - Soft, NT/ND, no masses, normal bowel sounds, Skin - Warm, dry, no rashes/lesions/ulcers Psych - Normal mood and affect, no depression or anxiety - Assessment and Plan (1) Acute metabolic encephalopathy Current Visit: Yes Status: Acute Assessment and Plan: Acute metabolic encephalopathy likely secondary to acute symptomatic hyponatremia and dehydration from diarrhea Patient comes in with nausea , vomiting and diarrhea of a couple of days dur ation of unclear etiology Will obtain stool panel. Continue repleting electrolytes and close sodium monitoring q 4hrs Renal following (2) Hyponatremia Current Visit: Yes Status: Acute Assessment and Plan: Acute symptomatic hyponatremia. Monitor sodium levels q 4 hrs. 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 Renal following and recs appreciated (3) Diarrhea Current Visit: Yes Status: Acute Assessment and Plan: Pt has diarrhea likely secondary to E. coli infection. Stools studies came back positive for enteroaggregative E. coli Due to the fact that antibiotics may increase risk of EHEC/ HUS, will consult ID for further recommendations Continue supportive care and IV fluid hydration (4) Hypertension Current Visit: Yes Status: Acute Assessment and Plan: continue home meds (5) Hypokalemia Current Visit: Yes Status: Acute Assessment and Plan: likley secondary to GI losses. Replace potassium (6) Hypomagnesemia Current Visit: Yes Status: Acute Assessment and Plan: Replace magnesium (7) Vomiting Current Visit: Yes Status: Acute Assessment and Plan: Zofran as needed and replete electrolytes (8) DVT prophylaxis Current Visit: Yes Status: Acute Assessment and Plan: Heparin sc - Time Spent with Patient Total time spent is greater than 50% in coordination of care (as documented) at patient's floor/unit and/or counseling patient: Internal Medicine: Result - Labs CBC & Chem 7: 05/04/18 03:38 05/05/18 10:36 Labs: BMP 05/04/18 05/04/18 05/04/18 08:12 10:25 14:18 Sodium 122 L 122 L 122 L Potassium 4.1 Chloride 86 L Carbon Dioxide 33 H BUN 5 L Creatinine 0.58 L Glucose 102 Calcium 8.5 L 05/04/18 05/04/18 05/04/18 17:25 20:17 22:00 Sodium 121 L 120 L* 120 L* Potassium Chloride Carbon Dioxide BUN Creatinine Glucose Calcium 05/05/18 05/05/18 05/05/18 01:00 03:21 03:47 Sodium 119 L* 120 L* 120 L* Potassium 3.9 3.7 Chloride 83 L 84 L Carbon Dioxide 29 31 H BUN 5 L 4 L Creatinine 0.57 L 0.54 L Glucose 106 H 102 Calcium 8.3 L 8.2 L Liver Function 05/05/18 05/05/18 Range/Units 01:00 03:47 Albumin 3.1 L 3.0 L (3.5-5.7) g/dL Consult Discharge Plan - Plan Referrals: Marco Jaffe Jr, MD [Primary Care Provider] - (3) Diarrhea Qualifiers: Diarrhea type: presumed infectious Qualified Code(s): R19.7 - Diarrhea, unspecified (4) Hypertension Qualifiers: Qualified Code(s): I10 - Essential (primary) hypertension (7) Vomiting Qualifiers: Vomiting type: unspecified Vomiting Intractability: unspecified Nausea presence: with nausea Qualified Code(s): R11.2 - Nausea with vomiting, unspe cified
[2018-05-05] MEDS ORDERED: Lidocaine -MPF 1% 2 ML VIAL ID PRN (09:07)
[2018-05-05] MEDS ORDERED: Tolvaptan 15 MG TABLET PO ONE (09:48)
[2018-05-05] MEDS: Artificial Tears SOLN 15 ML BOTTLE BOTH EYES SCH ×4 (10:19→23:13)
[2018-05-05 12:36] LABS: Adenovirus F 40/41 PCR Not detected (Not detect); Astrovirus PCR Not detected (Not detect); C.difficile Toxin A/B Gene PCR Not detected (Not detect); Campylobacter by PCR Not detected (Not detect); Cryptosporidium by PCR Not detected (Not detect); Cyclospora cayetanensis PCR Not detected (Not detect); E. coli O157 by PCR Not detected (Not detect); Entamoeba histolytica PCR Not detected (Not detect); Enteroaggregative E.coli(EAEC) DETECTED (Not detect); Enteropathogenic E.coli(EPEC) Not detected (Not detect); Enterotoxigenic E.coli (ETEC) Not detected (Not detect); Giardia lamblia PCR Not detected (Not detect); Norovirus GI/GII PCR Not detected (Not detect); Plesiomonas shigelloides PCR Not detected (Not detect); Rotavirus A PCR Not detected (Not detect); Salmonella PCR Not detected (Not detect); Sapovirus PCR Not detected (Not detect); Shig/EnteroinvasiveE coli EIEC Not detected (Not detect); Shigalike tox-prod E coli STEC Not detected (Not detect); Vibrio PCR Not detected (Not detect); Vibrio cholerae PCR Not detected (Not detect); Yersinia enterocolitica PCR Not detected (Not detect)
[2018-05-05] MEDS ORDERED: MetroNIDAZOLE 500 MG/100 ML 500 MG/100 ML BAG IVPB SCH (13:19)
[2018-05-05] MEDS ORDERED: *HR* HYDROcodone/Acet 5/325 mg TABLET PO PRN (15:42)
--- NOTE | 2018-05-05 16:04 | Infectious Disease Consult ---
Date of Encounter: 05/05/18 Time of Encounter: 15:57 Assessment and Plan (1) Sepsis Status: Acute Assessment and plan: Patient had 2 SIRS criteria on admission Etiology not clear could be due to dysentery Qualifiers: Sepsis type: sepsis due to unspecified organism Qualified Code(s): A41.9 - Sepsis, unspecified organism (2) Diarrhea Status: Acute Assessment and plan: Chronic Having going on for months C. 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 Patient severely dehydrated and has been going on for quite some time so I will treat with IV ceftriaxone No signs of hemolytic uremic syndrome, no signs of acute histiocytes or thrombocytopenia Monitor labs closely and for drug toxicity Qualifiers: Diarrhea type: presumed infectious Qualified Code(s): R19.7 - Diarrhea, unspecified (3) Hyponatremia Status: Acute Assessment and plan: Discussed with the nephrology team Could be all due to electrolyte loss from chronic diarrhea Aggressive hydration with hypertonic saline and replace magnesium and potassium We will check morning cortisol level and lipid level Defer to nephrology (4) Acute metabolic encephalopathy Status: Acute Assessment and plan: Likely secondary to hyponatremia (5) Allergy to penicillin Status: Acute Assessment and plan: Exact reaction not known Monitor closely while on ceftriaxone No history of anaphylaxis (6) Adrenal adenoma Status: Acute Qualifiers: Laterality: right Qualified Code(s): D35.01 - Benign neoplasm of right adrenal gland Infectious Disease HPI - Data of Consult Patient: new to practice Consult date: 05/05/18 Requesting Physician: Octavio El MD Primary Care Provider: Marco Jaffe Jr, MD - Consult Narrative Reason for consult: Diarrhea History of present illness: Ms. Simon is a 83 year old female Patient is an 83-year-old woman who presented to [facility] late 05/02/2018 with confusion and vomiting and abdominal pain, we are consulted on 05/05/2018 for antibiotic recommendations. Patient is a 3-year-old woman with past medical history mentioned below including coronary artery disease, COPD, chronic diarrhea that has been going on for months as per daughter and sometimes the stool looks black. Daughter who apparently is the caregiver tells me that she keeps having this diarrhea and sometimes it feels like a dried coffee. Patient's daughter tells me that this issue has not been addressed even though has been going on for quite some time. Other than the diarrhea she denies any abdominal pain. She denied any nausea or vomiting but the patient is not a great historian. She denies any urinary sym ptoms. There is no aggravating or alleviating factor diarrhea. Since admission, patient has been afebrile, tachycardic but no tachypnea. Presenting labs revealed WBC 17.3 with 81% neutrophils no bands. Sodium 115, potassium 2.6, BUN 8, CR 0.69, Platelet osmolality at 243, magnesium 1. A stool PCR panel was done and it came back positive for EAEC. C. difficile was also checked came back negative. A urine culture was obtained and came back negative. CT abdomen and pelvis revealed air-fluid levels within the nondistended colon consistent with diarrheal disease. No other acute findings in the abdomen or pelvis. Stable 3.1 cm low-attenuation mass in the right adrenal gland consistent with a benign and renal adenoma. CC: Octavio El MD Past Med Surg Social Fam HX - Past Medical History Medical history: COPD, hyperlipidemia, hypertension, myocardial infarction Psychiatric history: no psych history - Past Surgical History Surgical History: cholecystectomy, hysterectomy - Social History Smoking Status: Never smoker Smokeless Tobacco Status: No Alcohol use: none Drug use: none Infectious Disease-CN:Meds HYDROcodone/Acet 5/325 mg [Humeston 5-325 mg] 1 tab PO Q6H PRN 3 Days #12 tab 12/16/17 [Rx] Allopurinol [Zyloprim 100 MG] 100 mg PO DAILY 05/03/18 [History] Ergocalciferol (VITAMIN D2) [Vitamin D2] 50,000 unit PO QWEEK 05/03/18 [History] Furosemide [Lasix] 80 mg PO DAILY 05/03/18 [History] Isosorbide MONOnitrate (24 HR) [Imdur] 30 mg PO DAILY 05/03/18 [History] Metoprolol Succinate [Toprol Xl] 50 mg PO DAILY 05/03/18 [History] Potassium Chloride [Klor-Con 10] 10 meq PO BID 05/03/18 [History] Sulfasalazine [Azulfidine] 1,000 mg PO DAILY 05/03/18 [History] Allergy/AdvReac Type Severity Reaction Status Date / Time Penicillins Allergy Anaphylaxis Verified 05/02/18 22:29 Review of systems: 10 point review of systems done, negative other for what mentioned in history of present illness Exam - Constitutional Vitals: Temp Pulse Resp BP Pulse Ox 97.9 F 91 16 115/73 92 05/05/18 15:28 05/05/18 15:28 05/05/18 15:28 05/05/18 15:28 05/05/18 15:28 General appearance: cooperative, no acute distress, no febrile - Head Head exam: Present: atraumatic, normocephalic - Eye Eye exam: Present: PERRL, sclera anicteric - ENT Additional comments: Mucous membranes dry. Patient has caries in the right frontal tooth. She has also vesicular lesion on the inside of her upper lip - Neck Neck exam: Present: full ROM. Absent: meningismus - Respiratory Respiratory exam: Present: CTAB. Absent: wheezes - Cardiovascular Cardiovascular exam: Present: RRR, +S1, +S2 - GI/Abdominal GI/Abdominal exam: Present: normal bowel sounds, soft. Absent: guarding, tenderness - Extremities Exam Extremities exam: Present: full ROM, pedal edema - Neurological Exam Neurological exam: Present: alert, oriented X3 Additional comments: No encephalitis picture - Psychiatric Psychiatric exam: Present: normal affect, normal mood - Skin Skin exam: Present: normal color. Absent: rash Infectious Disease CN: Results - Labs CBC & Chem 7: 05/04/18 03:38 05/05/18 13:22 Cultures: Cultures 05/03/18 02:11 Urine Culture - Final Urine,Catheterized No significant growth. Serology: Serology 05/05/18 05/05/18 05/03/18 Range/Units 10:18 03:22 13:19 Urine Color (Yellow) Urine Clarity (Clear) Urine pH (5.0-8.0) pH Units Ur Specific Sullivan (1.010-1.025) Urine Protein (Neg-Trace) mg/dL Urine Glucose (UA) (Normal) mg/dL Urine Ketones (Negative) mg/dL Urine Blood (Negative) Urine Nitrite (Negative) Urine Bilirubin (Negative) Urine Urobilinogen (Normal) mg/dL Ur Leukocyte Esterase (Negative) Urine Microscopic WBC (0-3) per hpf Ur Squamous Epith Cells (None-Few) per lpf Urine Bacteria (None-Few) per hpf Hyaline Casts (None-Few) per lpf Ur Culture Indicated? (NO) Urine Osmolality 459 68 L (300-1090) mOsm/kg Stl C. cayetanensis PCR Not detected (Not detect) Stool Rotavirus A PCR Not detected (Not detect) Stl Adenov F 40/41 PCR Not detected (Not detect) Stool Astrovirus (PCR) Not detected (Not detect) Stool Campylobacter PCR Not detected (Not detect) Stool Cryptosporidium PCR Not detected (Not detect) Stl Sh Tox Pr E STEC PCR Not detected (Not detect) Stool E coli O157 PCR Not detected (Not detect) Stl Enterotoxigenic E PCR Not detected (Not detect) Stool EPEC (PCR) Not detected (Not detect) Stool EAEC (PCR) DETECTED A (Not detect) Stl E. histolytica PCR Not detected (Not detect) Stool Giardia Lamblia PCR Not detected (Not detect) Stool Salmonella PCR Not detected (Not detect) Stool Sapovirus (PCR) Not detected (Not detect) Stl P. shigelloides PCR Not detected (Not detect) Stl Shigella/EIEC PCR Not detected (Not detect) St Y.enterocolitica PCR Not detected (Not detect) Stool Vibrio (PCR) Not detected (Not detect) Stl Vibrio cholerae PCR Not detected (Not detect) Stl Norovirus GI/GII PCR Not detected (Not detect) Stl GI Panel (PCR) Com See below C.diff Toxin Gene (MARTI) Not detected (Not detect) 05/03/18 Range/Units 02:11 Urine Color Dark Yellow (Yellow) Urine Clarity Cloudy A (Clear) Urine pH 6.0 (5.0-8.0) pH Units Ur Specific Sullivan 1.016 (1.010-1.025) Urine Protein Negative (Neg-Trace) mg/dL Urine Glucose (UA) Normal (Normal) mg/dL Urine Ketones Negative (Negative) mg/dL Urine Blood Negative (Negative) Urine Nitrite Negative (Negative) Urine Bilirubin Negative (Negative) Urine Urobilinogen Normal (Normal) mg/dL Ur Leukocyte Esterase Small H (Negative) Urine Microscopic WBC 5-15 H (0-3) per hpf Ur Squamous Epith Cells Moderate H (None-Few) per lpf Urine Bacteria Few (None-Few) per hpf Hyaline Casts Few (None-Few) per lpf Ur Culture Indicated? YES A (NO) Urine Osmolality (300-1090) mOsm/kg Stl C. cayetanensis PCR (Not detect) Stool Rotavirus A PCR (Not detect) Stl Adenov F 40/41 PCR (Not detect) Stool Astrovirus (PCR) (Not detect) Stool Campylobacter PCR (Not detect) Stool Cryptosporidium PCR (Not detect) Stl Sh Tox Pr E STEC PCR (Not detect) Stool E coli O157 PCR (Not detect) Stl Enterotoxigenic E PCR (Not detect) Stool EPEC (PCR) (Not detect) Stool EAEC (PCR) (Not detect) Stl E. histolytica PCR (Not detect) Stool Giardia Lamblia PCR (Not detect) Stool Salmonella PCR (Not detect) Stool Sapovirus (PCR) (Not detect) Stl P. shigelloides PCR (Not detect) Stl Shigella/EIEC PCR (Not detect) St Y.enterocolitica PCR (Not detect) Stool Vibrio (PCR) (Not detect) Stl Vibrio cholerae PCR (Not detect) Stl Norovirus GI/GII PCR (Not detect) Stl GI Panel (PCR) Com C.diff Toxin Gene (MARTI) (Not detect) Consult Discharge Plan - Plan Referrals: Marco Jaffe Jr, MD [Primary Care Provider] -
[2018-05-05] MEDS: cefTRIAXone 2,000 MG in Water for inj. (sterile) 20 ML 20 ML IVP SCH (17:32)
[2018-05-06 05:57] LABS: BUN/Creatinine Ratio 7 (6-26); Blood Urea Nitrogen 5 mg/dL (8-23); Calcium 9.1 mg/dL (8.6-10.3); Carbon Dioxide 32 mEq/L (23-29); Chloride 95 mEq/L (98-107); Chol/HDL Ratio 4.4 (0-4.9); Cholesterol 181 mg/dL (< 200); Glucose 143 mg/dL (70-105); HDL Cholesterol 41 mg/dL (40-59); LDL Cholesterol,Calculated 120 mg/dL (0-99); Magnesium 1.8 mg/dL (1.6-2.6); Osmolality,Calculated 276 (280-300); Phosphorous 3.5 mg/dL (2.7-4.5); Potassium 4.2 mEq/L (3.5-5.1); Sodium 133 mEq/L (136-145); Triglycerides 102 mg/dL (< 150); eGFR For Non-African Americans > 60 (> 60)
[2018-05-06 06:00] LABS: Basophils % 0.3 %; Eosinophils # 0.1 K/mcL (0.0-0.6); Eosinophils % 0.7 %; Hematocrit 37.2 % (35.3-44.9); Hemoglobin 12.6 g/dL (11.5-15.4); Lymphocytes % 16.9 %; Mean Corpuscular HGB Conc 33.9 g/dL (31.6-35.5); Mean Corpuscular Hemoglobin 30.9 pg (28.0-33.3); Mean Corpuscular Volume 91.2 fL (83.0-100.0); Mean Platelet Volume 9.1 fL (9.4-12.4); Monocytes # 1.4 K/mcL (0.0-1.3); Monocytes % 11.9 %; Nucleated Red Blood Cells 0.3 /100 WBC (0); Platelet Count 254 K/mcL (140-400); Red Blood Count 4.08 M/mcL (3.82-4.97); Red Cell Distribution Width 15.3 % (11.5-14.5); Segmented Neutrophils % 69.2 %
[2018-05-06] MEDS: *HR* Heparin 5,000 UNIT/ML VIAL SQ SCH ×2 (06:29→17:17)
[2018-05-06] MEDS: sulfaSALAzine 500 MG TABLET PO SCH (09:55)
[2018-05-06] MEDS: Lactobacillus 1 EACH CAP.SPRINK PO SCH ×2 (09:55→20:18)
[2018-05-06] MEDS: Cholecalciferol (D-3) 1,000 UNIT TABLET PO SCH (09:55)
[2018-05-06] MEDS: Metoprolol XL (24 HR) Succ 50 MG TAB.ER.24H PO SCH (09:55)
[2018-05-06] MEDS: Isosorbide MONOnitrate (24 HR) 30 MG TAB.ER.24H PO SCH (09:55)
[2018-05-06] MEDS: Chloraseptic Spray 177 ML BOTTLE MM PRN (09:57)
[2018-05-06] MEDS ORDERED: D5% in Water 1,000 ML IVC SCH (10:15)
--- NOTE | 2018-05-06 11:06 | Infectious Disease Progress No ---
Date of Encounter: 05/06/18 Time of Encounter: 11:04 - Assessment and Plan (1) Sepsis Current Visit: Yes Status: Acute Improving Qualifiers: Sepsis type: sepsis due to unspecified organism Qualified Code(s): A41.9 - Sepsis, unspecified organism (2) Diarrhea Current Visit: Yes Status: Acute Chronic Having going on for months C. 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 in the literature Patient severely dehydrated and has been going on for quite some time so I will treat with IV ceftriaxone No signs of hemolytic uremic syndrome, no signs of acute histiocytes or thrombocytopenia Patient denies does not need to be in contact isolation anymore. Reviewed the CDC guidelines Monitor labs closely and for drug toxicity Qualifiers: Diarrhea type: presumed infectious Qualified Code(s): R19.7 - Diarrhea, unspecified (3) Hyponatremia Current Visit: Yes Status: Acute Improved Discussed with the nephrology team Could be all due to electrolyte loss from chronic diarrhea Aggressive hydration with hypertonic saline and replace magnesium and potassium We will check morning cortisol level and lipid level Defer to nephrology (4) Acute metabolic encephalopathy Current Visit: Yes Status: Resolved (5) Allergy to penicillin Current Visit: Yes Status: Acute Exact reaction not known Monitor closely while on ceftriaxone No history of anaphylaxis (6) Adrenal adenoma Current Visit: Yes Status: Acute Qualifiers: Laterality: right Qualified Code(s): D35.01 - Benign neoplasm of right adrenal gland - Subjective Interval history: Patient seen and examined. Much better today. Denies any chest pain or's shortness of breath. No abdominal pain. Had no bowel movements a day. Electrolytes significantly improved. More alert and oriented. Vital signs afebrile tachycardic and hypotensive Labs WBC 11.6,Na 135, K 95, Mg 1.8 Infect Dis PN-Objective Data - Labs CBC & Chem 7: 05/06/18 05:24 05/06/18 14:02 Labs: Laboratory Results - last 24 hr 05/05/18 05/05/18 05/05/18 03:58 10:18 10:36 WBC RBC Hgb Hct MCV MCH MCHC RDW Plt Count MPV Immature Gran % Seg Neutrophils % Lymphocytes % Monocytes % Eosinophils % Basophils % Neutrophils # Lymphocytes # Monocytes # Eosinophils # Basophils # Nucleated RBCs/100 WBC Sodium 122 L 120 L* Potassium Chloride Carbon Dioxide BUN Creatinine Est GFR ( Amer) Est GFR (Non-Af Amer) BUN/Creatinine Ratio Glucose Calculated Osmolality Lactic Acid Calcium Phosphorus Magnesium Triglycerides Cholesterol LDL Cholesterol, Calc VLDL Cholesterol, Calc HDL Cholesterol Cholesterol/HDL Ratio Random Cortisol Stl C. cayetanensis PCR Not detected Stool Rotavirus A PCR Not detected Stl Adenov F 40/41 PCR Not detected Stool Astrovirus (PCR) Not detected Stool Campylobacter PCR Not detected Stool Cryptosporidium PCR Not detected Stl Sh Tox Pr E STEC PCR Not detected Stool E coli O157 PCR Not detected Stl Enterotoxigenic E PCR Not detected Stool EPEC (PCR) Not detected Stool EAEC (PCR) DETECTED A Stl E. histolytica PCR Not detected Stool Giardia Lamblia PCR Not detected Stool Salmonella PCR Not detected Stool Sapovirus (PCR) Not detected Stl P. shigelloides PCR Not detected Stl Shigella/EIEC PCR Not detected St Y.enterocolitica PCR Not detected Stool Vibrio (PCR) Not detected Stl Vibrio cholerae PCR Not detected Stl Norovirus GI/GII PCR Not detected Stl GI Panel (PCR) Com See below C.diff Toxin Gene (MARTI) Not detected 05/05/18 05/05/18 05/05/18 13:22 17:38 21:27 WBC RBC Hgb Hct MCV MCH MCHC RDW Plt Count MPV Immature Gran % Seg Neutrophils % Lymphocytes % Monocytes % Eosinophils % Basophils % Neutrophils # Lymphocytes # Monocytes # Eosinophils # Basophils # Nucleated RBCs/100 WBC Sodium 119 L* 125 L 128 L Potassium Chloride Carbon Dioxide BUN Creatinine Est GFR ( Amer) Est GFR (Non-Af Amer) BUN/Creatinine Ratio Glucose Calculated Osmolality Lactic Acid Calcium Phosphorus Magnesium Triglycerides Cholesterol LDL Cholesterol, Calc VLDL Cholesterol, Calc HDL Cholesterol Cholesterol/HDL Ratio Random Cortisol Stl C. cayetanensis PCR Stool Rotavirus A PCR Stl Adenov F 40 PCR Stool Astrovirus (PCR) Stool Campylobacter PCR Stool Cryptosporidium PCR Stl Sh Tox Pr E STEC PCR Stool E coli O157 PCR Stl Enterotoxigenic E PCR Stool EPEC (PCR) Stool EAEC (PCR) Stl E. histolytica PCR Stool Giardia Lamblia PCR Stool Salmonella PCR Stool Sapovirus (PCR) Stl P. shigelloides PCR Stl Shigella/EIEC PCR St Y.enterocolitica PCR Stool Vibrio (PCR) Stl Vibrio cholerae PCR Stl Norovirus GI/GII PCR Stl GI Panel (PCR) Com C.diff Toxin Gene (MARTI) 05/06/18 05/06/18 05/06/18 02:05 05:24 05:24 WBC 11.6 H RBC 4.08 Hgb 12.6 Hct 37.2 MCV 91.2 MCH 30.9 MCHC 33.9 RDW 15.3 H Plt Count 254 MPV 9.1 L Immature Gran % 1.0 Seg Neutrophils % 69.2 Lymphocytes % 16.9 Monocytes % 11.9 Eosinophils % 0.7 Basophils % 0.3 Neutrophils # 8.0 Lymphocytes # 2.0 Monocytes # 1.4 H Eosinophils # 0.1 Basophils # 0.0 Nucleated RBCs/100 WBC 0.3 H Sodium 131 L 133 L Potassium 4.2 Chloride 95 L Carbon Dioxide 32 H BUN 5 L Creatinine 0.70 Est GFR ( Amer) > 60 Est GFR (Non-Af Amer) > 60 BUN/Creatinine Ratio 7 Glucose 143 H Calculated Osmolality 276 L Lactic Acid Calcium 9.1 Phosphorus 3.5 Magnesium 1.8 Triglycerides 102 Cholesterol 181 LDL Cholesterol, Calc 120 H VLDL Cholesterol, Calc 20 HDL Cholesterol 41 Cholesterol/HDL Ratio 4.4 Random Cortisol 11.4 Stl C. cayetanensis PCR Stool Rotavirus A PCR Stl Adenov F 40/41 PCR Stool Astrovirus (PCR) Stool Campylobacter PCR Stool Cryptosporidium PCR Stl Sh Tox Pr E STEC PCR Stool E coli O157 PCR Stl Enterotoxigenic E PCR Stool EPEC (PCR) Stool EAEC (PCR) Stl E. histolytica PCR Stool Giardia Lamblia PCR Stool Salmonella PCR Stool Sapovirus (PCR) Stl P. shigelloides PCR Stl Shigella/EIEC PCR St Y.enterocolitica PCR Stool Vibrio (PCR) Stl Vibrio cholerae PCR Stl Norovirus GI/GII PCR Stl GI Panel (PCR) Com C.diff Toxin Gene (MARTI) 05/06/18 05/06/18 05:24 08:45 WBC RBC Hgb Hct MCV MCH MCHC RDW Plt Count MPV Immature Gran % Seg Neutrophils % Lymphocytes % Monocytes % Eosinophils % Basophils % Neutrophils # Lymphocytes # Monocytes # Eosinophils # Basophils # Nucleated RBCs/100 WBC Sodium 135 L Potassium Chloride Carbon Dioxide BUN Creatinine Est GFR ( Amer) Est GFR (Non-Af Amer) BUN/Creatinine Ratio Glucose Calculated Osmolality Lactic Acid 1.9 Calcium Phosphorus Magnesium Triglycerides Cholesterol LDL Cholesterol, Calc VLDL Cholesterol, Calc HDL Cholesterol Cholesterol/HDL Ratio Random Cortisol Stl C. cayetanensis PCR Stool Rotavirus A PCR Stl Adenov F 40/ PCR Stool Astrovirus (PCR) Stool Campylobacter PCR Stool Cryptosporidium PCR Stl Sh Tox Pr E STEC PCR Stool E coli O157 PCR Stl Enterotoxigenic E PCR Stool EPEC (PCR) Stool EAEC (PCR) Stl E. histolytica PCR Stool Giardia Lamblia PCR Stool Salmonella PCR Stool Sapovirus (PCR) Stl P. shigelloides PCR Stl Shigella/EIEC PCR St Y.enterocolitica PCR Stool Vibrio (PCR) Stl Vibrio cholerae PCR Stl Norovirus GI/GII PCR Stl GI Panel (PCR) Com C.diff Toxin Gene (MARTI) Cultures: Cultures 05/03/18 02:11 Urine Culture - Final Urine,Catheterized No significant growth. Serology 05/05/18 05/05/18 05/03/18 Range/Units 10:18 03:22 13:19 Urine Color (Yellow) Urine Clarity (Clear) Urine pH (5.0-8.0) pH Units Ur Specific Harris (1.010-1.025) Urine Protein (Neg-Trace) mg/dL Urine Glucose (UA) (Normal) mg/dL Urine Ketones (Negative) mg/dL Urine Blood (Negative) Urine Nitrite (Negative) Urine Bilirubin (Negative) Urine Urobilinogen (Normal) mg/dL Ur Leukocyte Esterase (Negative) Urine Microscopic WBC (0-3) per hpf Ur Squamous Epith Cells (None-Few) per lpf Urine Bacteria (None-Few) per hpf Hyaline Casts (None-Few) per lpf Ur Culture Indicated? (NO) Urine Osmolality 459 68 L (300-1090) mOsm/kg Stl C. cayetanensis PCR Not detected (Not detect) Stool Rotavirus A PCR Not detected (Not detect) Stl Adenov F 40/41 PCR Not detected (Not detect) Stool Astrovirus (PCR) Not detected (Not detect) Stool Campylobacter PCR Not detected (Not detect) Stool Cryptosporidium PCR Not detected (Not detect) Stl Sh Tox Pr E STEC PCR Not detected (Not detect) Stool E coli O157 PCR Not detected (Not detect) Stl Enterotoxigenic E PCR Not detected (Not detect) Stool EPEC (PCR) Not detected (Not detect) Stool EAEC (PCR) DETECTED A (Not detect) Stl E. histolytica PCR Not detected (Not detect) Stool Giardia Lamblia PCR Not detected (Not detect) Stool Salmonella PCR Not detected (Not detect) Stool Sapovirus (PCR) Not detected (Not detect) Stl P. shigelloides PCR Not detected (Not detect) Stl Shigella/EIEC PCR Not detected (Not detect) St Y.enterocolitica PCR Not detected (Not detect) Stool Vibrio (PCR) Not detected (Not detect) Stl Vibrio cholerae PCR Not detected (Not detect) Stl Norovirus GI/GII PCR Not detected (Not detect) Stl GI Panel (PCR) Com See below C.diff Toxin Gene (MARTI) Not detected (Not detect) 05/03/18 Range/Units 02:11 Urine Color Dark Yellow (Yellow) Urine Clarity Cloudy A (Clear) Urine pH 6.0 (5.0-8.0) pH Units Ur Specific Harris 1.016 (1.010-1.025) Urine Protein Negative (Neg-Trace) mg/dL Urine Glucose (UA) Normal (Normal) mg/dL Urine Ketones Negative (Negative) mg/dL Urine Blood Negative (Negative) Urine Nitrite Negative (Negative) Urine Bilirubin Negative (Negative) Urine Urobilinogen Normal (Normal) mg/dL Ur Leukocyte Esterase Small H (Negative) Urine Microscopic WBC 5-15 H (0-3) per hpf Ur Squamous Epith Cells Moderate H (None-Few) per lpf Urine Bacteria Few (None-Few) per hpf Hyaline Casts Few (None-Few) per lpf Ur Culture Indicated? YES A (NO) Urine Osmolality (300-1090) mOsm/kg Stl C. cayetanensis PCR (Not detect) Stool Rotavirus A PCR (Not detect) Stl Adenov F 40/41 PCR (Not detect) Stool Astrovirus (PCR) (Not detect) Stool Campylobacter PCR (Not detect) Stool Cryptosporidium PCR (Not detect) Stl Sh Tox Pr E STEC PCR (Not detect) Stool E coli O157 PCR (Not detect) Stl Enterotoxigenic E PCR (Not detect) Stool EPEC (PCR) (Not detect) Stool EAEC (PCR) (Not detect) Stl E. histolytica PCR (Not detect) Stool Giardia Lamblia PCR (Not detect) Stool Salmonella PCR (Not detect) Stool Sapovirus (PCR) (Not detect) Stl P. shigelloides PCR (Not detect) Stl Shigella/EIEC PCR (Not detect) St Y.enterocolitica PCR (Not detect) Stool Vibrio (PCR) (Not detect) Stl Vibrio cholerae PCR (Not detect) Stl Norovirus GI/GII PCR (Not detect) Stl GI Panel (PCR) Com C.diff Toxin Gene (MARTI) (Not detect) Exam - Constitutional Vitals: Temp Pulse Resp BP Pulse Ox 97.9 F 111 20 90/51 91 05/06/18 07:00 05/06/18 07:00 05/06/18 07:00 05/06/18 07:00 05/06/18 07:00 General appearance: no acute distress, no febrile - Head Head exam: Present: atraumatic, normocephalic - Eye Eye exam: Present: EOMI, PERRL - Respiratory Respiratory exam: Present: CTAB. Absent: wheezes - Cardiovascular Cardiovascular exam: Present: RRR, +S1, +S2 - GI/Abdominal GI/Abdominal exam: Present: normal bowel sounds, soft. Absent: tenderness Consult Discharge Plan - Plan Referrals: Marco Jaffe Jr, MD [Primary Care Provider] - ([facility] [place])
--- NOTE | 2018-05-06 11:49 | Internal Med Progress Note ---
Hospitalist Progress Note - Encounter Date of Encounter: 05/06/18 Time of Encounter: 11:53 - Subjective Interval History: Patient lying down in bed. She reports of pain in her mouth from recent fall and injuries. She received Chloraseptic spray which seemed to have helped her pain. She denies any dizziness or lightheadedness. No nausea or vomiting. No chest pain or shortness of breath. - Exam Vitals: Temp Pulse Resp BP Pulse Ox 98.2 F 102 19 106/69 92 05/06/18 11:00 05/06/18 11:00 05/06/18 11:05/06/18 11:00 05/06/18 11:00 Exam: General: Patient is alert, no acute distress, oriented x 3 ENT: Mucous membranes moist, no visible bleeding or injuries in the oral cavity Respiratory: Good respiratory effort. Normal breath sounds. 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 Cardiovascular: Regular rate and rhythm. s1 and s2 normal, systolic murmur present. Bilateral pedal edema present Abdomen: Abdomen is soft, nontender. Bowel sounds are present Musculoskeletal: Spontaneously moving all extremities Skin: warm, dry, intact. Neuro: Alert oriented x 3 normal cranial nerves, no focal deficits - Assessment and Plan (1) Gastrointestinal infection due to enteroadherent Escherichia coli Current Visit: Yes Status: Acute Assessment and Plan: Infectious disease following. Recommend treatment with ceftriaxone. Will continue. Frequency of diarrhea improving. We will add lactobacillus. 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 Responded well to tolvaptan. Sodium did correct quickly. 135 this morning. We will infuse IV dextrose water solution. Nephrology following. Continue to monitor sodium levels (3) Vomiting Current Visit: Yes Status: Acute Assessment and Plan: Improving. continue symptomatic treatment. (4) Hypokalemia Current Visit: Yes Status: Resolved Assessment and Plan: Likely from diarrhea. Now resolved (5) Hypomagnesemia Current Visit: Yes Status: Acute Assessment and Plan: Resolved. (6) DVT prophylaxis Current Visit: Yes Status: Acute Assessment and Plan: On subcutaneous heparin (7) Hypertension Current Visit: Yes Status: Chronic Assessment and Plan: Blood pressure was low earlier this morning but has since improved. (8) Acute metabolic encephalopathy Current Visit: Yes Status: Resolved Assessment and Plan: Patient is back to baseline. Possible discharge tomorrow if her sodium levels remain stable (9) Diarrhea Current Visit: Yes Status: Acute Assessment and Plan: Due to Escherichia coli. Treating with ceftriaxone. - Time Spent with Patient Total time spent is greater than 50% in coordination of care (as documented) at patient's floor/unit and/or counseling patient: Internal Medicine: Result - Labs CBC & Chem 7: 05/06/18 05:24 05/06/18 08:45 Labs: Short CBC 05/06/18 Range/Units 05:24 WBC 11.6 H (4.3-11.1) K/mcL Hgb 12.6 (11.5-15.4) g/dL Hct 37.2 (35.3-44.9) % Plt Count 254 (140-400) K/mcL Neutrophils # 8.0 (1.6-8.9) K/mcL BMP 05/05/18 05/05/18 05/05/18 13:22 17:38 21:27 Sodium 119 L* 125 L 128 L Potassium Chloride Carbon Dioxide BUN Creatinine Glucose Calcium 05/06/18 05/06/18 05/06/18 02:05 05:24 08:45 Sodium 131 L 133 L 135 L Potassium 4.2 Chloride 95 L Carbon Dioxide 32 H BUN 5 L Creatinine 0.70 Glucose 143 H Calcium 9.1 Consult Discharge Plan - Plan Referrals: Marco Jaffe Jr, MD [Primary Care Provider] - ([facility], [place], operated [facility]) (3) Vomiting Qualifiers: Vomiting type: unspecified Vomiting Intractability: unspecified Nausea presence: with nausea Qualified Code(s): R11.2 - Nausea with vomiting, unspecified (7) Hypertension Qualifiers: Hypertension type: essential hypertension Qualified Code(s): I10 - Essential (primary) hypertension (9) Diarrhea Qualifiers: Diarrhea type: presumed infectious Qualified Code(s): R19.7 - Diarrhea, unspecified
[2018-05-06] MEDS: Artificial Tears SOLN 15 ML BOTTLE BOTH EYES SCH ×4 (17:00→20:18)
[2018-05-06] MEDS: Insulin LISPRO 300 UNITS/3 ML VIAL SQ SCH ×2 (17:00→17:18)
[2018-05-06] MEDS: cefTRIAXone 2,000 MG in Water for inj. (sterile) 20 ML 20 ML IVP SCH (17:15)
--- NOTE | 2018-05-06 17:18 | Nephrology Progress Note ---
Date of Encounter: 05/06/18 Time of Encounter: 16:00 - Assessment and Plan (1) Hyponatremia Current Visit: Yes Status: Acute Suspect volume depletion as etiology. Continue slow correction and as discussed with the primary team, I rec a low dose D5W today for a slow, safe rate of correction. She was more alert without confusion today, which is reassuring. Can now space out the timing of checking PNa given that she is back into the 130s. Most likely by tomorrow, the D5W can be stopped and allow her to auto-correct thereafter. (2) Vomiting Current Visit: Yes Status: Acute Qualifiers: Vomiting type: unspecified Vomiting Intractability: unspecified Nausea presence: with nausea Qualified Code(s): R11.2 - Nausea with vomiting, unspecified (3) Hypokalemia Current Visit: Yes Status: Resolved corrected (4) Hypomagnesemia Current Visit: Yes Status: Acute (5) Hypertension Current Visit: Yes Status: Chronic avoid thiazide type diuretics Qualifiers: Hypertension type: essential hypertension Qualified Code(s): I10 - Essential (primary) hypertension (6) Adrenal adenoma Current Visit: Yes Status: Acute Adrenal incidentaloma, rec serial imaging in about 6 months. Qualifiers: Laterality: right Qualified Code(s): D35.01 - Benign neoplasm of right adrenal gland Subjective Principal diagnosis: Hyponatremia. Interval history: Pt was s/e in her room with her adult daughter present. The pt affirmed feeling more awake, alert and affirmed having a good appetite without N/V/D or seizures. The daughter said the pt chronically has think ankles. Objective - Vital Signs Vital signs: Vital Signs Temp Pulse Resp BP Pulse Ox 05/06/18 16:50 98.1 F 82 20 100/62 95 05/06/18 11:00 98.2 F 102 19 106/69 92 05/06/18 07:00 97.9 F 111 20 90/51 91 05/06/18 03:45 97.4 F L 102 15 96/62 91 05/05/18 23:43 98.0 F 108 17 94/57 88 05/05/18 20:31 97.7 F 107 16 122/75 91 Intake and Output 05/06/18 05/06/18 05/06/18 07:59 15:59 23:59 Other: # Voids 1 Blood Glucose* 166 - General Appearance Exam: General appearance: Present: well-developed, well-nourished, obese, fatigue EENT: Present: ATNC, PERRL, mucous membranes moist Neck: Present: supple Respiratory: Present: clear Cardiology: Present: edema (nonpitting large ankles mostly consistent with adiposity), regular rate, regular rhythm, normal S1, normal S2 Gastrointestinal: Present: normoactive bowel sounds, no tenderness, obese Integumentary: Present: warm and dry Neurologic: Present: no asterixis Musculoskeletal: Present: no erythema, no cyanosis Psychiatric: Present: cooperative - Lab 05/06/18 05:24 05/06/18 14:02 Most recent lab results Calcium 9.1 mg/dL (8.6-10.3) 05/06/18 05:24 Phosphorus 3.5 mg/dL (2.7-4.5) 05/06/18 05:24 Magnesium 1.8 mg/dL (1.6-2.6) 05/06/18 05:24 Consult Discharge Plan - Plan Referrals: Marco Jaffe Jr, MD [[facility] Provider[facility] - [facility])
[2018-05-07] MEDS: *HR* Heparin 5,000 UNIT/ML VIAL SQ SCH ×2 (05:00→16:54)
[2018-05-07] MEDS: Lactobacillus 1 EACH CAP.SPRINK PO SCH ×2 (08:28→20:47)
[2018-05-07] MEDS: sulfaSALAzine 500 MG TABLET PO SCH (08:28)
[2018-05-07] MEDS: Metoprolol XL (24 HR) Succ 50 MG TAB.ER.24H PO SCH (08:29)
[2018-05-07] MEDS: Artificial Tears SOLN 15 ML BOTTLE BOTH EYES SCH ×4 (08:29→20:48)
[2018-05-07] MEDS: Cholecalciferol (D-3) 1,000 UNIT TABLET PO SCH (08:29)
[2018-05-07] MEDS: Isosorbide MONOnitrate (24 HR) 30 MG TAB.ER.24H PO SCH (08:29)
[2018-05-07] MEDS: Insulin LISPRO 300 UNITS/3 ML VIAL SQ SCH ×3 (08:32→17:09)
[2018-05-07 09:09] LABS: Basophils # 0.1 K/mcL (0.0-0.2); Basophils % 0.6 %; Eosinophils # 0.4 K/mcL (0.0-0.6); Eosinophils % 2.9 %; Hematocrit 32.9 % (35.3-44.9); Immature Granulocytes % 1.4 % (0-4); Lymphocytes # 3.8 K/mcL (0.6-4.6); Lymphocytes % 29.4 %; Mean Corpuscular HGB Conc 33.1 g/dL (31.6-35.5); Mean Corpuscular Hemoglobin 30.9 pg (28.0-33.3); Mean Corpuscular Volume 93.2 fL (83.0-100.0); Mean Platelet Volume 9.1 fL (9.4-12.4); Monocytes # 1.7 K/mcL (0.0-1.3); Monocytes % 12.9 %; Neutrophils # 6.8 K/mcL (1.6-8.9); Platelet Count 230 K/mcL (140-400); Red Blood Count 3.53 M/mcL (3.82-4.97); Red Cell Distribution Width 16.1 % (11.5-14.5); Segmented Neutrophils % 52.8 %
[2018-05-07 09:10] LABS: Hemoglobin 10.9 g/dL (11.5-15.4)
[2018-05-07 09:19] LABS: BUN/Creatinine Ratio 6 (6-26); Blood Urea Nitrogen 4 mg/dL (8-23); Calcium 8.9 mg/dL (8.6-10.3); Carbon Dioxide 32 mEq/L (23-29); Chloride 97 mEq/L (98-107); Glucose 112 mg/dL (70-105); Magnesium 1.9 mg/dL (1.6-2.6); Osmolality,Calculated 278 (280-300); Phosphorous 3.5 mg/dL (2.7-4.5); Potassium 3.8 mEq/L (3.5-5.1); Sodium 135 mEq/L (136-145); eGFR For Non-African Americans > 60 (> 60)
--- NOTE | 2018-05-07 10:33 | Nephrology Progress Note ---
Date of Encounter: 05/07/18 Time of Encounter: 09:00 - Assessment and Plan (1) Hyponatremia Current Visit: Yes Status: Acute The PNa is nicely correcting to 135. I suspect volume depletion as etiology. I recommend a BMP in about 1 week after discharge and at least one nephrology outpt follow up appt in about 3-5 weeks. Will sign-off. Thank you for having consulted the [facility]. Please feel free to call or reconsult me if any questions/worsening of her hyponatremia. Thank you. (2) Vomiting Current Visit: Yes Status: Acute Qualifiers: Vomiting type: unspecified Vomiting Intractability: unspecified Nausea presence: with nausea Qualified Code(s): R11.2 - Nausea with vomiting, unspecified (3) Hypokalemia Current Visit: Yes Status: Resolved (4) Hypomagnesemia Current Visit: Yes Status: Acute (5) Hypertension Current Visit: Yes Status: Chronic Qualifiers: Hypertension type: essential hypertension Qualified Code(s): I10 - Essential (primary) hypertension (6) Adrenal adenoma Current Visit: Yes Status: Acute Qualifiers: Laterality: right Qualified Code(s): D35.01 - Benign neoplasm of right adrenal gland Subjective Principal diagnosis: Hyponatremia. Interval history: Pt was s/e in her room with her adult son present. The pt affirmed feeling more awake, alert and affirmed having a good appetite without N/V/D or seizures. The said that she fell backwards last night while walking in he room -- discussed with the hospitalist. Objective - Vital Signs Vital signs: Vital Signs Temp Pulse Resp BP Pulse Ox 05/07/18 07:31 98.6 F 78 16 120/77 92 05/07/18 04:45 98.9 F 81 159 119/68 05/07/18 02:02 97.9 F 91 13 99/63 91 05/06/18 20:00 97.9 F 97 18 115/68 92 05/06/18 16:50 98.1 F 82 20 100/62 95 05/06/18 11:00 98.2 F 102 19 106/69 92 Intake and Output 05/06/18 05/07/18 05/07/18 23:59 07:59 15:59 Intake Total 1000 / 1000 Balance 1000 / 1000 Intake: IV Fluids 20 / 20 1000 / 1000 Dextrose 5% 1,000 ML @ 75 mls/ 1000 / 1000 hr IVC .[id number] [facility] Rx#: [id number] Rocephin 2,000 MG In Water for 20 / 20 inj. (sterile) 20 ML @ 600 mls/ hr IVP Q24H [facility] Rx#:[id number] Other: Weight 84.3 kg Blood Glucose* 166 124 Patient Weight 05/07/18 23:59 Weight 84.3 kg - General Appearance Exam: General appearance: Present: well-developed, well-nourished, obese, fatigue EENT: Present: ATNC, PERRL, mucous membranes moist Neck: Present: supple Respiratory: Present: clear Cardiology: Present: edema (nonpitting large ankles mostly consistent with adiposity), regular rate, regular rhythm, normal S1, normal S2 Gastrointestinal: Present: normoactive bowel sounds, no tenderness, obese Integumentary: Present: warm and dry Neurologic: Present: no asterixis Musculoskeletal: Present: no erythema, no cyanosis Psychiatric: Present: cooperative - Lab 05/07/18 08:12 05/07/18 08:12 Most recent lab results Calcium 8.9 mg/dL (8.6-10.3) 05/07/18 08:12 Phosphorus 3.5 mg/dL (2.7-4.5) 05/07/18 08:12 Magnesium 1.9 mg/dL (1.6-2.6) 05/07/18 08:12 Consult Discharge Plan - Plan Referrals: Marco Jaffe Jr, MD [Primary Care Provider] - ([facility])
--- NOTE | 2018-05-07 14:44 | Internal Med Progress Note ---
Hospitalist Progress Note - Encounter Date of Encounter: 05/07/18 Time of Encounter: 11:00 - Subjective Interval History: Patient is awake and alert. She had gotten up to use the bathroom yesterday with help and felt very weak. She almost fell down but was held by nursing staff. She denies any dizziness or lightheadedness. No new episodes of nausea or vomiting. Diarrhea is improving. No abdominal pain. No fevers or chills reported overnight. - Exam Vitals: Temp Pulse Resp BP Pulse Ox 98.0 F 80 16 95/61 95 05/07/18 11:27 05/07/18 11:27 05/07/18 11:27 05/07/18 11:27 05/07/18 11:27 Exam: General: Patient is alert, no acute distress, oriented x 3 ENT: Mucous membranes moist Respiratory: Good respiratory effort. Normal breath sounds. No wheezing or crackles. Cardiovascular: Regular rate and rhythm. s1 and s2 normal systolic murmur present. Bilateral nonpitting pedal edema Abdomen: Abdomen is soft, nontender. Bowel sounds are present Musculoskeletal: Spontaneously moving all extremities Skin: warm, dry, intact. Neuro: Alert oriented x 3 normal cranial nerves, no focal deficits - Assessment and Plan (1) Gastrointestinal infection due to enteroadherent Escherichia coli Current Visit: Yes Status: Acute Assessment and Plan: On IV ceftriaxone. Will transition to oral antibiotics. (2) Hyponatremia Current Visit: Yes Status: Acute (3) Vomiting Current Visit: Yes Status: Acute (4) Hypokalemia Current Visit: Yes Status: Resolved (5) Hypomagnesemia Current Visit: Yes Status: Resolved (6) DVT prophylaxis Current Visit: Yes Status: Acute Assessment and Plan: On subcutaneous heparin (7) Hypertension Current Visit: Yes Status: Chronic Assessment and Plan: Blood pressure remains within normal limits. Patient having episodes of low normotension. We will decrease metoprolol dosage to avoid orthostasis. (8) Acute metabolic encephalopathy Current Visit: Yes Status: Resolved (9) Diarrhea Current Visit: Yes Status: Acute Assessment and Plan: Due to Escherichia coli gastroenteritis. Improving. continue lactobacillus. (10) Sepsis Current Visit: Yes Status: Resolved - Time Spent with Patient Total time spent is greater than 50% in coordination of care (as documented) at patient's floor/unit and/or counseling patient: Internal Medicine: Result - Labs CBC & Chem 7: 05/07/18 08:12 05/07/18 08:12 Labs: Short CBC 05/07/18 Range/Units 08:12 WBC 12.9 H (4.3-11.1) K/mcL Hgb 10.9 L D (11.5-15.4) g/dL Hct 32.9 L (35.3-44.9) % Plt Count 230 (140-400) K/mcL Neutrophils # 6.8 (1.6-8.9) K/mcL BMP 05/07/18 08:12 Sodium 135 L Potassium 3.8 Chloride 97 L Carbon Dioxide 32 H BUN 4 L Creatinine 0.67 Glucose 112 H Calcium 8.9 Consult Discharge Plan - Plan Referrals: Marco Jaffe Jr, MD [Primary Care Provider] - ([facility]) (3) Vomiting Qualifiers: Vomiting type: unspecified Vomiting Intractability: unspecified Nausea presence: with nausea Qualified Code(s): R11.2 - Nausea with vomiting, unspecified (7) Hypertension Qualifiers: Hypertension type: essential hypertension Qualified Code(s): I10 - Essential (primary) hypertension (9) Diarrhea Qualifiers: Diarrhea type: presumed infectious Qualified Code(s): R19.7 - Diarrhea, unspecified (10) Sepsis Qualifiers: Sepsis type: Escherichia coli Qualified Code(s): A41.51 - Sepsis due to Escherichia coli [E. coli]
--- NOTE | 2018-05-07 17:37 | Electrocardiograph Report ---
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
--- NOTE | 2018-05-07 19:15 | Infectious Disease Progress No ---
Date of Encounter: 05/07/18 Time of Encounter: 19:13 - Assessment and Plan (1) Sepsis Current Visit: Yes Status: Resolved Improving Qualifiers: Sepsis type: Escherichia coli Qualified Code(s): A41.51 - Sepsis due to Escherichia coli [E. coli] (2) Diarrhea Current Visit: Yes Status: Acute Chronic Having going on for months C. 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 in the literature Patient severely dehydrated and has been going on for quite some time so I will treat with IV ceftriaxone No signs of hemolytic uremic syndrome, no signs of acute histiocytes or thrombocytopenia Patient denies does not need to be in contact isolation anymore. Reviewed the CDC guidelines Monitor labs closely and for drug toxicity Qualifiers: Diarrhea type: presumed infectious Qualified Code(s): R19.7 - Diarrhea, unspecified (3) Hyponatremia Current Visit: Yes Status: Acute Improved Discussed with the nephrology team Could be all due to electrolyte loss from chronic diarrhea Aggressive hydration with hypertonic saline and replace magnesium and potassium We will check morning cortisol level and lipid level Defer to nephrology (4) Acute metabolic encephalopathy Current Visit: Yes Status: Resolved (5) Allergy to penicillin Current Visit: Yes Status: Acute Exact reaction not known Monitor closely while on ceftriaxone No history of anaphylaxis (6) Adrenal adenoma Current Visit: Yes Status: Acute Qualifiers: Laterality: right Qualified Code(s): D35.01 - Benign neoplasm of right adrenal gland - Subjective Interval history: Patient seen and examined. Much better today. Denies any chest pain or's shortness of breath. No ab dominal pain. Had no bowel movements a day. Electrolytes significantly improved. More alert and oriented. family at bedside Vital signs afebrile tachycardic and hypotensive Labs WBC 12,9,Na 135, K 95, Mg 1.8 Infect Dis PN-Objective Data - Labs CBC & Chem 7: 05/07/18 08:12 05/07/18 08:12 Labs: Laboratory Results - last 24 hr 05/06/18 05/07/18 05/07/18 16:58 08:12 08:12 WBC 12.9 H RBC 3.53 L Hgb 10.9 L D Hct 32.9 L MCV 93.2 MCH 30.9 MCHC 33.1 RDW 16.1 H Plt Count 230 MPV 9.1 L Immature Gran % 1.4 Seg Neutrophils % 52.8 Lymphocytes % 29.4 Monocytes % 12.9 Eosinophils % 2.9 Basophils % 0.6 Neutrophils # 6.8 Lymphocytes # 3.8 Monocytes # 1.7 H Eosinophils # 0.4 Basophils # 0.1 Sodium 135 L Potassium 3.8 Chloride 97 L Carbon Dioxide 32 H BUN 4 L Creatinine 0.67 Est GFR ( Amer) > 60 Est GFR (Non-Af Amer) > 60 BUN/Creatinine Ratio 6 Glucose 112 H POC Glucose 166 H Calculated Osmolality 278 L Calcium 8.9 Phosphorus 3.5 Magnesium 1.9 Cultures: Cultures 05/05/18 14:42 Blood Culture - Preliminary Peripheral Venipuncture Culture is incubating and being continuously monitored for growth. Final report to follow. 05/05/18 13:45 Blood Culture - Preliminary Peripheral Venipuncture Culture is incubating and being continuously monitored for growth. Final report to follow. 05/03/18 02:11 Urine Culture - Final Urine,Catheterized No significant growth. Serology 05/05/18 05/05/18 05/03/18 Range/Units 10:18 03:22 13:19 Urine Color (Yellow) Urine Clarity (Clear) Urine pH (5.0-8.0) pH Units Ur Specific Jamul (1.010-1.025) Urine Protein (Neg-Trace) mg/dL Urine Glucose (UA) (Normal) mg/dL Urine Ketones (Negative) mg/dL Urine Blood (Negative) Urine Nitrite (Negative) Urine Bilirubin (Negative) Urine Urobilinogen (Normal) mg/dL Ur Leukocyte Esterase (Negative) Urine Microscopic WBC (0-3) per hpf Ur Squamous Epith Cells (None-Few) per lpf Urine Bacteria (None-Few) per hpf Hyaline Casts (None-Few) per lpf Ur Culture Indicated? (NO) Urine Osmolality 459 68 L (300-1090) mOsm/kg Stl C. cayetanensis PCR Not detected (Not detect) Stool Rotavirus A PCR Not detected (Not detect) Stl Adenov F 40/41 PCR Not detected (Not detect) Stool Astrovirus (PCR) Not detected (Not detect) Stool Campylobacter PCR Not detected (Not detect) Stool Cryptosporidium PCR Not detected (Not detect) Stl Sh Tox Pr E STEC PCR Not detected (Not detect) Stool E coli O157 PCR Not detected (Not detect) Stl Enterotoxigenic E PCR Not detected (Not detect) Stool EPEC (PCR) Not detected (Not detect) Stool EAEC (PCR) DETECTED A (Not detect) Stl E. histolytica PCR Not detected (Not detect) Stool Giardia Lamblia PCR Not detected (Not detect) Stool Salmonella PCR Not detected (Not detect) Stool Sapovirus (PCR) Not detected (Not detect) Stl P. shigelloides PCR Not detected (Not detect) Stl Shigella/EIEC PCR Not detected (Not detect) St Y.enterocolitica PCR Not detected (Not detect) Stool Vibrio (PCR) Not detected (Not detect) Stl Vibrio cholerae PCR Not detected (Not detect) Stl Norovirus GI/GII PCR Not detected (Not detect) Stl GI Panel (PCR) Com See below C.diff Toxin Gene (MARTI) Not detected (Not detect) 05/03/18 Range/Units 02:11 Urine Color Dark Yellow (Yellow) Urine Clarity Cloudy A (Clear) Urine pH 6.0 (5.0-8.0) pH Units Ur Specific Jamul 1.016 (1.010-1.025) Urine Protein Negative (Neg-Trace) mg/dL Urine Glucose (UA) Normal (Normal) mg/dL Urine Ketones Negative (Negative) mg/dL Urine Blood Negative (Negative) Urine Nitrite Negative (Negative) Urine Bilirubin Negative (Negative) Urine Urobilinogen Normal (Normal) mg/dL Ur Leukocyte Esterase Small H (Negative) Urine Microscopic WBC 5-15 H (0-3) per hpf Ur Squamous Epith Cells Moderate H (None-Few) per lpf Urine Bacteria Few (None-Few) per hpf Hyaline Casts Few (None-Few) per lpf Ur Culture Indicated? YES A (NO) Urine Osmolality (300-1090) mOsm/kg Stl C. cayetanensis PCR (Not detect) Stool Rotavirus A PCR (Not detect) Stl Adenov F 40/41 PCR (Not detect) Stool Astrovirus (PCR) (Not detect) Stool Campylobacter PCR (Not detect) Stool Cryptosporidium PCR (Not detect) Stl Sh Tox Pr E STEC PCR (Not detect) Stool E coli O157 PCR (Not detect) Stl Enterotoxigenic E PCR (Not detect) Stool EPEC (PCR) (Not detect) Stool EAEC (PCR) (Not detect) Stl E. histolytica PCR (Not detect) Stool Giardia Lamblia PCR (Not detect) Stool Salmonella PCR (Not detect) Stool Sapovirus (PCR) (Not detect) Stl P. shigelloides PCR (Not detect) Stl Shigella/EIEC PCR (Not detect) St Y.enterocolitica PCR (Not detect) Stool Vibrio (PCR) (Not detect) Stl Vibrio cholerae PCR (Not detect) Stl Norovirus GI/GII PCR (Not detect) Stl GI Panel (PCR) Com C.diff Toxin Gene (MARTI) (Not detect) Exam - Constitutional Vitals: Temp Pulse Resp BP Pulse Ox 97.7 F 93 16 103/61 93 05/07/18 18:43 05/07/18 18:43 05/07/18 18:43 05/07/18 18:43 05/07/18 18:43 General appearance: cooperative, no acute distress, no febrile - Respiratory Respiratory exam: Present: CTAB. Absent: wheezes - Cardiovascular Cardiovascular exam: Present: RRR, +S1, +S2 - GI/Abdominal GI/Abdominal exam: Present: normal bowel sounds, soft. Absent: tenderness - Extremities Exam Extremities exam: Present: full ROM. Absent: pedal edema Consult Discharge Plan - Plan Referrals: Marco Jaffe Jr, MD [Primary Care Provider] - ([facility])
[2018-05-07] MEDS: Cefdinir 300 MG CAPSULE PO SCH (20:47)
[2018-05-08] MEDS: *HR* Heparin 5,000 UNIT/ML VIAL SQ SCH ×2 (06:24→16:54)
[2018-05-08 06:40] LABS: Hemoglobin 10.5 g/dL (11.5-15.4); Immature Granulocytes % 1.4 % (0-4)
[2018-05-08 06:59] LABS: BUN/Creatinine Ratio 12 (6-26); Blood Urea Nitrogen 8 mg/dL (8-23); Carbon Dioxide 29 mEq/L (23-29); Chloride 99 mEq/L (98-107); Glucose 120 mg/dL (70-105); Magnesium 1.8 mg/dL (1.6-2.6); Osmolality,Calculated 278 (280-300); Phosphorous 4.3 mg/dL (2.7-4.5); Potassium 3.9 mEq/L (3.5-5.1); Sodium 134 mEq/L (136-145); eGFR For Non-African Americans > 60 (> 60)
[2018-05-08 07:44] LABS: Basophils # 0.1 K/mcL (0.0-0.2); Basophils % 0.5 %; Eosinophils % 3.1 %; Lymphocytes # 2.9 K/mcL (0.6-4.6); Lymphocytes % 20.1 %; Mean Corpuscular HGB Conc 32.8 g/dL (31.6-35.5); Mean Corpuscular Hemoglobin 30.8 pg (28.0-33.3); Mean Corpuscular Volume 93.8 fL (83.0-100.0); Mean Platelet Volume 8.9 fL (9.4-12.4); Monocytes # 1.6 K/mcL (0.0-1.3); Monocytes % 10.8 %; Nucleated Red Blood Cells 0.1 /100 WBC (0); Platelet Count 206 K/mcL (140-400); Red Blood Count 3.41 M/mcL (3.82-4.97); Red Cell Distribution Width 16.4 % (11.5-14.5); Segmented Neutrophils % 64.1 %
[2018-05-08 07:57] LABS: Eosinophils # 0.5 K/mcL (0.0-0.6); Neutrophils # 9.2 K/mcL (1.6-8.9); Platelet Estimate Normal (Normal)
[2018-05-08] MEDS: Insulin LISPRO 300 UNITS/3 ML VIAL SQ SCH ×3 (08:07→16:58)
[2018-05-08] MEDS: Metoprolol XL (24 HR) Succ 25 MG TAB.ER.24H PO SCH (08:13)
[2018-05-08] MEDS: sulfaSALAzine 500 MG TABLET PO SCH (08:13)
[2018-05-08] MEDS: Cefdinir 300 MG CAPSULE PO SCH ×2 (08:13→19:53)
[2018-05-08] MEDS: Lactobacillus 1 EACH CAP.SPRINK PO SCH ×2 (08:13→19:53)
[2018-05-08] MEDS: Cholecalciferol (D-3) 1,000 UNIT TABLET PO SCH (08:13)
[2018-05-08] MEDS: Artificial Tears SOLN 15 ML BOTTLE BOTH EYES SCH ×4 (08:13→19:54)
[2018-05-08] MEDS: Isosorbide MONOnitrate (24 HR) 30 MG TAB.ER.24H PO SCH (08:15)
[2018-05-08 11:11] LABS: HSV Source inner upper lip
[2018-05-08 12:31] LABS: HSV 1 DNA Not Detected (Not Detect); HSV 2 DNA Not Detected (Not Detect)
--- NOTE | 2018-05-08 15:14 | Internal Med Progress Note ---
Hospitalist Progress Note - Encounter Date of Encounter: 05/08/18 Time of Encounter: 15:12 - Subjective Interval History: Evaluated patient earlier today. Complains of pain in her upper lip. She had bit herself right to hospitalization. Has been receiving Chloraseptic spray with some improvement in her symptoms but pain remains. No fever or chills r eported overnight. She denies any shortness of breath. No nausea or vomiting. No dysuria. Diarrhea has improved - Exam Vitals: Temp Pulse Resp BP Pulse Ox 98.0 F 78 20 92/58 94 05/08/18 11:30 05/08/18 11:30 05/08/18 11:30 05/08/18 11:30 05/08/18 11:30 Exam: General: Patient is alert, mild distress, oriented x 3 ENT: Mucous membranes moist Respiratory: Good respiratory effort. Normal breath sounds. No wheezing or crackles. Cardiovascular: Regular rate and rhythm. s1 and s2 normal No clicks, rubs, gallops, or murmurs. Bilateral nonpitting pedal edema Abdomen: Soft, nontender Musculoskeletal: Spontaneously moving all extremities Skin: warm, dry, intact. - Assessment and Plan (1) Gastrointestinal infection due to enteroadherent Escherichia coli Current Visit: Yes Status: Acute Assessment and Plan: Continue Omnicef. WBC count 14.4 today. Patient has not had any fevers or chills. No other signs of acute infection. We will obtain urine analysis. Chest x-ray done did not show any infiltrate. Discussed with infectious disease. Will monitor overnight. If WBC count remains stable tomorrow, will discharge patient at that time. (2) Hyponatremia Current Visit: Yes Status: Acute Assessment and Plan: Improved. Sodium levels stable. At 134. Continue with fluid restriction (3) Vomiting Current Visit: Yes Status: Acute (4) Hypokalemia Current Visit: Yes Status: Resolved (5) Hypomagnesemia Current Visit: Yes Status: Resolved (6) Hypertension Current Visit: Yes Status: Chronic Assessment and Plan: Well-controlled. Continue current medications (7) Acute metabolic encephalopathy Current Visit: Yes Status: Resolved (8) Diarrhea Current Visit: Yes Status: Resolved (9) Sepsis Current Visit: Yes Status: Resolved Assessment and Plan: WBC count 14.4 today. No other signs of acute infection. Check urinalysis. Continue Omnicef for Escherichia coli gastroenteritis (10) DVT prophylaxis Current Visit: Yes Status: Acute Assessment and Plan: On subcutaneous heparin - Time Spent with Patient Total time spent is greater than 50% in coordination of care (as documented) at patient's floor/unit and/or counseling patient: Internal Medicine: Result - Labs CBC & Chem 7: 05/08/18 06:21 05/08/18 06:21 Labs: Short CBC 05/08/18 Range/Units 06:21 WBC 14.4 H (4.3-11.1) K/mcL Hgb 10.5 L (11.5-15.4) g/dL Hct 32.0 L (35.3-44.9) % Plt Count 206 (140-400) K/mcL Neutrophils # 9.2 H (1.6-8.9) K/mcL BMP 05/08/18 06:21 Sodium 134 L Potassium 3.9 Chloride 99 Carbon Dioxide 29 BUN 8 Creatinine 0.69 Glucose 120 H Calcium 9.0 - Impressions Impressions Chest X-Ray 05/08/18 12:47 IMPRESSION: No acute cardiopulmonary disease. Elevated left hemidiaphragm with dependent atelectasis. No acute infiltrate. D/ / Arsalan Jo MD / Arsalan Jo MD Interpreting Provider: Arsalan Jo MD Consult Discharge Plan - Plan Referrals: Marco Jaffe Jr, MD [Primary Care Provider] - ([facility]) (3) Vomiting Qualifiers: Vomiting type: unspecified Vomiting Intractability: unspecified Nausea presence: with nausea Qualified Code(s): R11.2 - Nausea with vomiting, unspecified (6) Hypertension Qualifiers: Hypertension type: essential hypertension Qualified Code(s): I10 - Essential (primary) hypertension (8) Diarrhea Qualifiers: Diarrhea type: presumed infectious Qualified Code(s): R19.7 - Diarrhea, unspecified (9) Sepsis Qualifiers: Sepsis type: Escherichia coli Qualified Code(s): A41.51 - Sepsis due to Escherichia coli [E. coli]
[2018-05-09 04:38] LABS: Basophils # 0.1 K/mcL (0.0-0.2); Basophils % 0.5 %; Eosinophils # 0.3 K/mcL (0.0-0.6); Eosinophils % 2.2 %; Hematocrit 30.5 % (35.3-44.9); Hemoglobin 10.4 g/dL (11.5-15.4); Lymphocytes # 1.5 K/mcL (0.6-4.6); Lymphocytes % 12.7 %; Mean Corpuscular HGB Conc 34.1 g/dL (31.6-35.5); Mean Corpuscular Hemoglobin 31.4 pg (28.0-33.3); Mean Corpuscular Volume 92.1 fL (83.0-100.0); Mean Platelet Volume 8.5 fL (9.4-12.4); Monocytes # 1.3 K/mcL (0.0-1.3); Monocytes % 10.8 %; Neutrophils # 8.4 K/mcL (1.6-8.9); Platelet Count 178 K/mcL (140-400); Red Blood Count 3.31 M/mcL (3.82-4.97); Red Cell Distribution Width 16.5 % (11.5-14.5); Segmented Neutrophils % 72.8 %
[2018-05-09 04:57] LABS: BUN/Creatinine Ratio 13 (6-26); Blood Urea Nitrogen 9 mg/dL (8-23); Calcium 9.1 mg/dL (8.6-10.3); Carbon Dioxide 29 mEq/L (23-29); Chloride 98 mEq/L (98-107); Glucose 124 mg/dL (70-105); Magnesium 1.8 mg/dL (1.6-2.6); Osmolality,Calculated 276 (280-300); Phosphorous 4.1 mg/dL (2.7-4.5); Sodium 133 mEq/L (136-145); eGFR For Non-African Americans > 60 (> 60)
[2018-05-09] MEDS: *HR* Heparin 5,000 UNIT/ML VIAL SQ SCH (05:34)
[2018-05-09] MEDS: Lactobacillus 1 EACH CAP.SPRINK PO SCH (08:01)
[2018-05-09] MEDS: Cefdinir 300 MG CAPSULE PO SCH (08:01)
[2018-05-09] MEDS: Insulin LISPRO 300 UNITS/3 ML VIAL SQ SCH ×2 (08:01→12:06)
[2018-05-09] MEDS: Metoprolol XL (24 HR) Succ 25 MG TAB.ER.24H PO SCH (08:01)
[2018-05-09] MEDS: sulfaSALAzine 500 MG TABLET PO SCH (08:01)
[2018-05-09] MEDS: Isosorbide MONOnitrate (24 HR) 30 MG TAB.ER.24H PO SCH (08:02)
[2018-05-09] MEDS: Artificial Tears SOLN 15 ML BOTTLE BOTH EYES SCH (08:02)
[2018-05-09] MEDS: Cholecalciferol (D-3) 1,000 UNIT TABLET PO SCH (08:02)
--- NOTE | 2018-05-09 10:29 | Infectious Disease Progress No ---
Date of Encounter: 05/09/18 Time of Encounter: 10:30 - Assessment and Plan (1) Sepsis Current Visit: Yes Status: Resolved Sepsis criteria met on admission - Currently Improving - On admission: WBC17.3, afebrile, HR85, RR 18 - Today: WBC11.6, afebrile, HR86, RR18 Qualifiers: Sepsis type: Escherichia coli Qualified Code(s): A41.51 - Sepsis due to Escherichia coli [E. coli] (2) Diarrhea Current Visit: Yes Status: Resolved Pt has history of chronic diarrhea that has been ongoing for months - C. 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 Reviewed the CDC guidelines Qualifiers: Diarrhea type: presumed infectious Qualified Code(s): R19.7 - Diarrhea, unspecified (3) Hyponatremia Current Visit: Yes Status: Acute Pt presented with hyponatremia, Na 115 - Improved, today Na 133 - Nephrology team is on board - Pts presentation could be due to chronic diarrhea and loss of electrolytes - Aggressive hydration with hypertonic saline, and replacement of Mg and K (4) Acute metabolic encephalopathy Current Visit: Yes Status: Resolved (5) Allergy to penicillin Current Visit: Yes Status: Acute Exact reaction not known Monitor closely while on ceftriaxone No history of anaphylaxis (6) Adrenal adenoma Current Visit: Yes Status: Acute 3.1cm low attenuation mass on right adrenal gland indicative of benign adrenal adenoma Qualifiers: Laterality: right Qualified Code(s): D35.01 - Benign neoplasm of right adrenal gland - Subjective Interval history: Pt was seen at bedside along with son and daughter. The son stayed with the pt overnight. She did not have any overnight events and is doing much better. She has chronic diarrhea, she had no more episodes of vomiting. The patient is still A&Ox0, but doing better than before. She recognizes her son and daughter by name. She denies chest pain, SOB, abdominal pain. Infect Dis PN-Objective Data - Labs CBC & Chem 7: 05/09/18 04:14 05/09/18 04:14 Labs: Laboratory Results - last 24 hr 05/08/18 05/08/18 05/08/18 07:25 11:03 11:33 WBC RBC Hgb Hct MCV MCH MCHC RDW Plt Count MPV Immature Gran % Seg Neutrophils % Lymphocytes % Monocytes % Eosinophils % Basophils % Neutrophils # Lymphocytes # Monocytes # Eosinophils # Basophils # Sodium Potassium Chloride Carbon Dioxide BUN Creatinine Est GFR ( Amer) Est GFR (Non-Af Amer) BUN/Creatinine Ratio Glucose POC Glucose 114 H 97 Calculated Osmolality Calcium Phosphorus Magnesium Herpes Simplex Source inner upper lip HSV I Not Detected HSV II Not Detected 05/08/18 05/09/18 05/09/18 16:57 04:14 04:14 WBC 11.6 H RBC 3.31 L Hgb 10.4 L Hct 30.5 L MCV 92.1 MCH 31.4 MCHC 34.1 RDW 16.5 H Plt Count 178 MPV 8.5 L Immature Gran % 1.0 Seg Neutrophils % 72.8 Lymphocytes % 12.7 Monocytes % 10.8 Eosinophils % 2.2 Basophils % 0.5 Neutrophils # 8.4 Lymphocytes # 1.5 Monocytes # 1.3 Eosinophils # 0.3 Basophils # 0.1 Sodium 133 L Potassium 4.0 Chloride 98 Carbon Dioxide 29 BUN 9 Creatinine 0.69 Est GFR ( Amer) > 60 Est GFR (Non-Af Amer) > 60 BUN/Creatinine Ratio 13 Glucose 124 H POC Glucose 124 H Calculated Osmolality 276 L Calcium 9.1 Phosphorus 4.1 Magnesium 1.8 Herpes Simplex Source HSV I HSV II 05/09/18 07:13 WBC RBC Hgb Hct MCV MCH MCHC RDW Plt Count MPV Immature Gran % Seg Neutrophils % Lymphocytes % Monocytes % Eosinophils % Basophils % Neutrophils # Lymphocytes # Monocytes # Eosinophils # Basophils # Sodium Potassium Chloride Carbon Dioxide BUN Creatinine Est GFR ( Amer) Est GFR (Non-Af Amer) BUN/Creatinine Ratio Glucose POC Glucose 107 H Calculated Osmolality Calcium Phosphorus Magnesium Herpes Simplex Source HSV I HSV II Cultures: Cultures 05/05/18 14:42 Blood Culture - Preliminary Peripheral Venipuncture Culture is incubating and being continuously monitored for growth. Final report to follow. 05/05/18 13:45 Blood Culture - Preliminary Peripheral Venipuncture Culture is incubating and being continuously monitored for growth. Final report to follow. 05/03/18 02:11 Urine Culture - Final Urine,Catheterized No significant growth. Serology 05/08/18 05/05/18 05/05/18 Range/Units 11:03 10:18 03:22 Urine Color (Yellow) Urine Clarity (Clear) Urine pH (5.0-8.0) pH Units Ur Specific [place] (1.010-1.025) Urine Protein (Neg-Trace) mg/dL Urine Glucose (UA) (Normal) mg/dL Urine Ketones (Negative) mg/dL Urine Blood (Negative) Urine Nitrite (Negative) Urine Bilirubin (Negative) Urine Urobilinogen (Normal) mg/dL Ur Leukocyte Esterase (Negative) Urine Microscopic WBC (0-3) per hpf Ur Squamous Epith Cells (None-Few) per lpf Urine Bacteria (None-Few) per hpf Hyaline Casts (None-Few) per lpf Ur Culture Indicated? (NO) Urine Osmolality 459 (300-1090) mOsm/kg Stl C. cayetanensis PCR Not detected (Not detect) Stool Rotavirus A PCR Not detected (Not detect) Stl Adenov F 40/41 PCR Not detected (Not detect) Stool Astrovirus (PCR) Not detected (Not detect) Stool Campylobacter PCR Not detected (Not detect) Stool Cryptosporidium PCR Not detected (Not detect) Stl Sh Tox Pr E STEC PCR Not detected (Not detect) Stool E coli O157 PCR Not detected (Not detect) Stl Enterotoxigenic E PCR Not detected (Not detect) Stool EPEC (PCR) Not detected (Not detect) Stool EAEC (PCR) DETECTED A (Not detect) Stl E. histolytica PCR Not detected (Not detect) Stool Giardia Lamblia PCR Not detected (Not detect) Stool Salmonella PCR Not detected (Not detect) Stool Sapovirus (PCR) Not detected (Not detect) Stl P. shigelloides PCR Not detected (Not detect) Stl Shigella/EIEC PCR Not detected (Not detect) St Y.enterocolitica PCR Not detected (Not detect) Stool Vibrio (PCR) Not detected (Not detect) Stl Vibrio cholerae PCR Not detected (Not detect) Stl Norovirus GI/GII PCR Not detected (Not detect) Stl GI Panel (PCR) Com See below C.diff Toxin Gene (MARTI) Not detected (Not detect) Herpes Simplex Source inner upper lip HSV I Not Detected (Not Detect) HSV II Not Detected (Not Detect) 05/03/18 05/03/18 Range/Units 13:19 02:11 Urine Color Dark Yellow (Yellow) Urine Clarity Cloudy A (Clear) Urine pH 6.0 (5.0-8.0) pH Units Ur Specific [place] 1.016 (1.010-1.025) Urine Protein Negative (Neg-Trace) mg/dL Urine Glucose (UA) Normal (Normal) mg/dL Urine Ketones Negative (Negative) mg/dL Urine Blood Negative (Negative) Urine Nitrite Negative (Negative) Urine Bilirubin Negative (Negative) Urine Urobilinogen Normal (Normal) mg/dL Ur Leukocyte Esterase Small H (Negative) Urine Microscopic WBC 5-15 H (0-3) per hpf Ur Squamous Epith Cells Moderate H (None-Few) per lpf Urine Bacteria Few (None-Few) per hpf Hyaline Casts Few (None-Few) per lpf Ur Culture Indicated? YES A (NO) Urine Osmolality 68 L (300-1090) mOsm/kg Stl C. cayetanensis PCR (Not detect) Stool Rotavirus A PCR (Not detect) Stl Adenov F 40/41 PCR (Not detect) Stool Astrovirus (PCR) (Not detect) Stool Campylobacter PCR (Not detect) Stool Cryptosporidium PCR (Not detect) Stl Sh Tox Pr E STEC PCR (Not detect) Stool E coli O157 PCR (Not detect) Stl Enterotoxigenic E PCR (Not detect) Stool EPEC (PCR) (Not detect) Stool EAEC (PCR) (Not detect) Stl E. histolytica PCR (Not detect) Stool Giardia Lamblia PCR (Not detect) Stool Salmonella PCR (Not detect) Stool Sapovirus (PCR) (Not detect) Stl P. shigelloides PCR (Not detect) Stl Shigella/EIEC PCR (Not detect) St Y.enterocolitica PCR (Not detect) Stool Vibrio (PCR) (Not detect) Stl Vibrio cholerae PCR (Not detect) Stl Norovirus GI/GII PCR (Not detect) Stl GI Panel (PCR) Com C.diff Toxin Gene (MARTI) (Not detect) Herpes Simplex Source HSV I (Not Detect) HSV II (Not Detect) - Impressions Impressions Chest X-Ray 05/08/18 12:47 IMPRESSION: No acute cardiopulmonary disease. Elevated left hemidiaphragm with dependent atelectasis. No acute infiltrate. D/ / Arsalan Jo MD / Arsalan Jo MD Interpreting Provider: Arsalan Jo MD Exam - Constitutional Vitals: Temp Pulse Resp BP Pulse Ox 97.8 F 86 18 117/68 89 05/09/18 07:17 05/09/18 07:17 05/09/18 07:17 05/09/18 07:17 05/09/18 07:17 - Additional findings Additional findings: Constitutional: cooperative, afebrile, no acute distress, A&Ox0 Head: atraumatic, normocephalic CV: RRR, S1, S2, no rubs, murmurs, or gallops Resp: poor respiratory effort, slight wheezing b/l upper lobes, no accessory muscle use Extremities: 2+ pulses UE, 1+ pulses LE, b/l swelling of LE Skin: dry, intact Consult Discharge Plan - Plan Instructions: Hyponatremia (GEN), Hypokalemia (GEN), Sepsis (GEN), Chronic Hypertension (DC) Referrals: Marco Jaffe Jr, MD [Primary Care Provider] - 05/23/18 11:00 am () Sergei Farfan DO [Partnered Physician] - 06/12/18 1:10 pm () Prescriptions: RX: Cefdinir [Omnicef] 300 mg PO BID #6 capsule RX: Chloraseptic [place] [Chloraseptic] 2 spray MM QID PRN #1 bottle PRN Reason: Sore Throat Furosemide [Lasix] 20 mg PO DAILY PRN #30 tablet PRN Reason: Edema RX: Lactobacillus [Culturelle] 1 each PO BID #20 cap.sprink RX: Metoprolol XL (24 HR) Succ [Toprol Xl] 25 mg PO DAILY #30 tab.er.24h RX: Potassium Chloride [Klor-Con 10] 10 meq PO DAILY #30 tablet.er - Attending Attestation I examined this patient and my medical decision-making was reviewed with the Resident Physician. I agree with the documented findings, disposition and treatment plan as described except to the extent set forth below. Patient seen and examined. Appears clinically well. Laying in bed. No chest pain or shortness of breath. Had one bowel movement today. No urinary symptoms. Physical exam: HEENT PERRLA EOMI Lungs clear to auscultation bilaterally Cardiac vascular S1-S2 regular Abdomen soft nontender no guarding Labs reviewed Assessment and plan: EAEC Continue Omnicef to finish a 7-10 day course Discussed with the hospitalist team Patient being discharged today Labs reviewed, chest x-ray is negative and WBC did improve. Not sure what she has a leukocytosis does not appear infectious
--- NOTE | 2018-05-09 11:15 | Discharge Summary ---
- NOTES TO OUTPATIENT PROVIDER Notes to Outpatient Provider: Patient was hospitalized here with severe hyponatremia, along with acute confusion and other electrolyte abnormalities related to diarrhea and gastroenteritis. Stool studies were positive for EAEC. Given her severe diarrhea, she was started on treatment for this with intra venous ceftriaxone. Her symptoms have slowly improved since then. Her hyponatremia has significantly improved in her sodium levels are now at 133. Nephrology was also helping manage her care and had given her tolvaptan once. She responded well to this. The etiology of her hyponatremia appears to be multifactorial due to the diarrhea and also a component of SIADH. At this time no further recommendations from nephrology standpoint and they will follow up with her in 3-5 weeks. She will be discharged home with home health later today. Orders not resulted at time of discharge: Pending orders 05/05/18 14:42 Culture,Blood [BC] Routine 05/08/18 12:47 Urinalysis Reflex Cult & Micro [URIN] Stat 05/10/18 04:00 Basic Metabolic Panel AM 0400 CBC [Complete Blood Count] [HEME] AM 0400 Magnesium AM 0400 Phosphorous AM 0400 05/11/18 04:00 Basic Metabolic Panel AM 0400 CBC [Complete Blood Count] [HEME] AM 0400 Magnesium AM 0400 Phosphorous AM 0400 Date of Encounter: 05/09/18 Time of Encounter: 11:12 - Discharge Diagnosis (1) Gastrointestinal infection due to enteroadherent Escherichia coli Priority: Primary Status: Acute (2) Hyponatremia Priority: Secondary Status: Acute (3) Vomiting Priority: Secondary Status: Acute Qualifiers: Vomiting type: unspecified Vomiting Intractability: unspecified Nausea presence: with nausea Qualified Code(s): R11.2 - Nausea with vomiting, unspecified (4) Hypokalemia Priority: Secondary Status: Resolved (5) Hypomagnesemia Priority: Secondary Status: Resolved (6) Hypertension Priority: Secondary Status: Chronic Qualifiers: Hypertension type: essential hypertension Qualified Code(s): I10 - Essential (primary) hypertension (7) Acute metabolic encephalopathy Priority: Secondary Status: Resolved (8) Diarrhea Priority: Secondary Status: Resolved Qualifiers: Diarrhea type: presumed infectious Qualified Code(s): R19.7 - Diarrhea, unspecified (9) Sepsis Priority: Secondary Status: Resolved Qualifiers: Sepsis type: Escherichia coli Qualified Code(s): A41.51 - Sepsis due to Escherichia coli [E. coli] (10) DVT prophylaxis Priority: Secondary Status: Acute Hospital course: Ms. Simon is a 83 year old female Patient was hospitalized here with severe hyponatremia, along with acute confusion and other electrolyte abnormalities related to diarrhea and gastroenteritis. Stool studies were positive for EAEC. Given her severe diarrhea, she was started on treatment for this with intravenous ceftriaxone. Her symptoms have slowly improved since then. Her hyponatremia has significantly improved in her sodium levels are now at 133. Nephrology was also helping manage her care and had given her tolvaptan once. She responded well to this. The etiology of her hyponatremia appears to be multifactorial due to the diarrhea and also a component of SIADH. At this time no further recommendations from nephrology standpoint and they will follow up with her in 3-5 weeks. She will be discharged home with home health later today. Discharge discussed with: patient, family, nurse, proposal consultant - Time Spent with Patient Total time spent providing and/or coordinating discharge services: Greater than 30 minutes (40 min) - Discharge Medications Prescriptions: Cefdinir [Omnicef] 300 mg PO BID #6 capsule Chloraseptic [place] [Chloraseptic] 2 spray MM QID PRN #1 bottle PRN Reason: Sore Throat Furosemide [Lasix] 20 mg PO DAILY PRN #30 tablet PRN Reason: Edema Lactobacillus [Culturelle] 1 each PO BID #20 cap.sprink Metoprolol XL (24 HR) Succ [Toprol Xl] 25 mg PO DAILY #30 tab.er.24h Potassium Chloride [Klor-Con 10] 10 meq PO DAILY #30 tablet.er Home Medications: HYDROcodone/Acet 5/325 mg [[place] 5-325 mg] 1 tab PO Q6H PRN 3 Days #12 tab 12/16/17 [Rx] Allopurinol [Zyloprim 100 MG] 100 mg PO DAILY 05/03/18 [History] Ergocalciferol (VITAMIN D2) [Vitamin D2] 50,000 unit PO QWEEK 05/03/18 [History] Isosorbide MONOnitrate (24 HR) [Imdur] 30 mg PO DAILY 05/03/18 [History] Sulfasalazine [Azulfidine] 1,000 mg PO DAILY 05/03/18 [History] Cefdinir [Omnicef] 300 mg PO BID #6 capsule 05/09/18 [Rx] Chloraseptic [place] [Chloraseptic] 2 spray MM QID PRN #1 bottle 05/09/18 [Rx] Furosemide [Lasix] 20 mg PO DAILY PRN #30 tablet 05/09/18 [Rx] Lactobacillus [Culturelle] 1 each PO BID #20 cap.sprink 05/09/18 [Rx] Metoprolol XL (24 HR) Succ [Toprol Xl] 25 mg PO DAILY #30 tab.er.24h 05/09/18 [Rx] Potassium Chloride [Klor-Con 10] 10 meq PO DAILY #30 tablet.er 05/09/18 [Rx] Allergies/Adverse Reactions: Allergy/AdvReac Type Severity Reaction Status Date / Time Penicillins Allergy Anaphylaxis Verified 05/02/18 22:29 Date of admission: 05/03/18 00:51 Primary care physician: Marco Jaffe Jr, MD Consults: 05/03/18 02:05 Consult to Nephrology [CONS] Routine Consulting Provider: Kidney Conchita/DG/ANALILIA/JEM Reason for Consult: Hyponatremia/AMS Call Completed: Yes 05/05/18 09:07 Consult to Invasive Line Access Team [CONS] Routine Reason for Consult: poor access Line Type: EPIV 05/05/18 13:24 Consult to Infectious Diseases [CONS] Routine Consulting Provider: Infectious Disease Conchita Reason for Consult: E.coli in stool Call Completed: Yes Discharging clinician: Radha Haro Anticipated date of discharge: 05/09/18 - Constitutional Vitals: Temp Pulse Resp BP Pulse Ox 97.8 F 86 18 117/68 89 05/09/18 07:17 05/09/18 07:17 05/09/18 07:17 05/09/18 07:17 05/09/18 07:17 General appearance: Present: cooperative, A&O X 2, pleasant, answers questions appropriately Exam: . - Respiratory Respiratory exam: Present: CTAB. Absent: accessory muscle use, rales, rhonchi, wheezes - Cardiovascular Cardiovascular exam: Present: RRR, +S1, +S2. Absent: diastolic murmur, gallop, rubs, systolic murmur - GI/Abdominal GI/Abdominal exam: Present: normal bowel sounds, soft, no peritoneal signs. Absent: distended, tenderness - Extremities Exam Extremities exam: Present: pedal edema (non pitting), warm, radial pulses palpable and symmetrical. Absent: calf tenderness, cyanotic - Neurological Exam Neurological exam: Present: alert, CN II-XII intact, no focal deficits. Absent: facial droop, speech deficit - Skin Skin exam: Present: dry, intact - Patient Status Disposition: Home Health Service Condition: Good Functional capacity at discharge: wheelchair bound Overall status at discharge: patient is progressing back to baseline - Ambulatory Orders Ambulatory Orders: Basic Metabolic Panel [CHEM] Time Frame: 1 Week, Facility: [facility], Location: Lab - Discharge Instructions Instructions: Chronic Hypertension (DC) Follow Up With: Marco Jaffe Jr, MD [Primary Care Provider] - ([facility]) Sergei Farfan DO [Partnered Physician] - (3 weeks) - Diet and Activity Activity: increase activity as tolerated Diet: advance to your usual diet
[2018-05-09 11:27] VITALS: BP 103/65
--- NOTE | 2018-05-09 11:30 | Physician Discharge Referral ---
Home Health/Hosp Referral Info Transfer to: Home Health Provider in Charge Post Discharge: PCP - Diagnosis (1) Gastrointestinal infection due to enteroadherent Escherichia coli Priority: Primary Status: Acute (2) Hyponatremia Priority: Secondary Status: Acute (3) Vomiting Priority: Secondary Status: Acute (4) Hypokalemia Priority: Secondary Status: Resolved (5) Hypomagnesemia Priority: Secondary Status: Resolved (6) Hypertension Priority: Secondary Status: Chronic (7) Acute metabolic encephalopathy Priority: Secondary Status: Resolved (8) Diarrhea Priority: Secondary Status: Resolved (9) Sepsis Priority: Secondary Status: Resolved (10) DVT prophylaxis Priority: Secondary Status: Acute - Respiratory Orders Smoking Cessation: Smoking cessation has been advised. For more information, call the [employer] Quit Line at 8-379-ANGB-NOW. - Diet/Nutrition Diet/Nutrition Orders: Cardiac - Activity Activity Orders: Chair - Services Needed Following services are medically necessary services: Nursing, Physical Therapy, Occupational Therapy Home Care Orders: Basic panel in 1 week. Please send results to Dr. Sergei Farfan with Nephrology - Transfer Medications Prescriptions: Cefdinir [Omnicef] 300 mg PO BID #6 capsule Chloraseptic [place] [Chloraseptic] 2 spray MM QID PRN #1 bottle PRN Reason: Sore Throat Furosemide [Lasix] 20 mg PO DAILY PRN #30 tablet PRN Reason: Edema Lactobacillus [Culturelle] 1 each PO BID #20 cap.sprink Metoprolol XL (24 HR) Succ [Toprol Xl] 25 mg PO DAILY #30 tab.er.24h Potassium Chloride [Klor-Con 10] 10 meq PO DAILY #30 tablet.er Home Medications: HYDROcodone/Acet 5/325 mg [Miranda 5-325 mg] 1 tab PO Q6H PRN 3 Days #12 tab 12/16/17 [Rx] Allopurinol [Zyloprim 100 MG] 100 mg PO DAILY 05/03/18 [History] Ergocalciferol (VITAMIN D2) [Vitamin D2] 50,000 unit PO QWEEK 05/03/18 [History] Isosorbide MONOnitrate (24 HR) [Imdur] 30 mg PO DAILY 05/03/18 [History] Sulfasalazine [Azulfidine] 1,000 mg PO DAILY 05/03/18 [History] Cefdinir [Omnicef] 300 mg PO BID #6 capsule 05/09/18 [Rx] Chloraseptic [place] [Chloraseptic] 2 spray MM QID PRN #1 bottle 05/09/18 [Rx] Furosemide [Lasix] 20 mg PO DAILY PRN #30 tablet 05/09/18 [Rx] Lactobacillus [Culturelle] 1 each PO BID #20 cap.sprink 05/09/18 [Rx] Metoprolol XL (24 HR) Succ [Toprol Xl] 25 mg PO DAILY #30 tab.er.24h 05/09/18 [Rx] Potassium Chloride [Klor-Con 10] 10 meq PO DAILY #30 tablet.er 05/09/18 [Rx] Allergies/Adverse Reactions: Allergy/AdvReac Type Severity Reaction Status Date / Time Penicillins Allergy Anaphylaxis Verified 05/02/18 22:29 Certification: Further, I certify that my clinical findings support that this patient is homebound (i.e. absences from home require considerable and taxing effort and are for medical reasons or church services or infrequently or short duration when for other reasons) because: Homebound Reason: Patient requires assistance of a person or device to safely leave home Attestation: My signature below is to certify that this patient is under my care and that I, or nurse practitioner, or a physician's assistant grocery store manager working with me, has a [id number] encounter with this patient.
== END 2018-05-09 12:50 | disposition home health service (06) | DRG 871 ==
LOC: EMEROOARM 21:25 → ICNU 05-03 00:51 → SUATTDRO 05-03 00:51 → ICNU 05-03 03:10 → 2ANU 05-04 11:04
PROVIDERS: ADMIT Internal Medicine; ATTEND Internal Medicine